=== PATIENT | male | born 1960 | race Caucasian/White ===

== ENCOUNTER → 2017-07-18 | Outpatient (CLI) | payer OTHER ==
[~2017-07-18] MED LIST: AZITHROMYCIN500 MG; CALCIUM ACETAT667 MG PO; LASIX40 MG PO; LOPRESSOR25 MG PO; NIFEDIPINE ER90 MG; SENSIPAR30 MG PO
[2017-07-18 13:29] LABS: INR 0.96; PROTHROMBIN TIME 13.3 seconds (11.9-14.5)
[2017-07-18 13:30] LABS: PARTIAL THROMBOPLASTIN TIME 33.1 seconds (23.8-35.5)
--- NOTE | 2017-07-18 14:46 | Diagnostic Imaging Report ---
PROCEDURE:ABDOMINAL ULTRASOUND COMPARISON:None. INDICATIONS:Ascites FINDINGS: Liver: 16.8 cm. Normal hepatic parenchymal echogenicity. No focal mass. Main portal vein: 1.3 cm. Hepatopedal flow. Gallbladder: Multiple echogenic gallstones are present. The gallbladder is distended, measuring 9.5 cm in greatest length. No gallbladder wall thickening or pericholecystic fluid. Common Bile Duct: 5.0 mm. No echogenic filling defect. Sonographic Keating's sign: Negative. Right kidney: Not visualized. Left kidney: Not visualized. Spleen: 11.2 cm. No focal mass. The pancreas, inferior vena cava, and aorta were insufficiently visualized for comment secondary to overlying bowel gas and increased body habitus. Ascites: None. CONCLUSION: Cholelithiasis. No sonographic evidence of acute cholecystitis. Probable gallbladder hydrops. Dictated by: Lui Peterson M.D. on 07/18/2017 at 14:55 Electronically approved by: Lui Peterson M.D. on 07/18/2017 at 14:55
== END ==
LOC: US 12:19
PROVIDERS: ATTEND Internal Medicine
DX: K70.31 Alcoholic cirrhosis of liver with ascites (principal)
CPT/HCPCS: 36415; 76700; 85049; 85610; 85730

== ENCOUNTER → 2017-08-13 | Outpatient (CLI) | payer OTHER ==
[~2017-08-13] MED LIST changes: +IOPAMIDOL 370 MG/ML 200 ML INFUS..BTL INJ ONE; +SODIUM CHLORIDE 0.9% 50ML 50 ML ONE
--- NOTE | 2017-08-13 10:41 | Diagnostic Imaging Report ---
CT scan abdomen and pelvis. 08/13/2017 Clinical history: Abdominal pain Technique: Routine protocol CT abdomen and pelvis performed after 100 mL Isovue-370 intravenous contrast. No enteric contrast was administered. Coronal, sagittal and axial images generated from source data. Dose: 583.39 mGy-cm Comparison: None Findings: Calcified right lower lobe granuloma. Left hemidiaphragm elevation. Mild cardiomegaly without pericardial effusion. Liver: Nodular margin with left lobe hypertrophy. Gallbladder: Multiple calcified stones measuring up to 2 cm in diameter. No bile duct dilation. Pancreas: Normal Spleen: Span 12 cm. Normal. Adrenal glands: Normal Kidneys: Totally atrophic left kidney with moderate hydroureter (for example, image 49, series 2). This extends to the level of the urinary bladder. Right pelvic kidney. Urinary bladder: Normal Prostate and seminal vesicles: Normal Bowel: Small sliding-type hiatal hernia. Mild descending colon diverticulosis. Normal small bowel caliber. Peritoneum: Normal Vasculature: Normal caliber. Expected anomalous origins of the right pelvic kidney vessels. Mild scattered atherosclerosis, nonflow limiting. Questionable early umbilical vein recanalization (image 24, series 2). No conspicuous varices. Lymph nodes: Retroperitoneal nodes measuring up to 0.9 cm in diameter (image 38, series 2). Otherwise, normal Skeleton: Relative loss of normal lumbar lordosis. Otherwise, normal Soft tissues: 2.5 x 3 x 3 cm fat-containing umbilical hernia. Hernia ostium about 1.3 cm. Containing fat demonstrates mild regional inflammation with trace focal fluid collection. No bowel involvement. Impression: 1. Fat-containing umbilical hernia. Hernia fat demonstrates mild inflammatory changes. Recommend correlation for strangulation/reducibility. No bowel involvement. 2. Right pelvic kidney and atrophic left kidney. Though the left kidney is atrophic, there is hydroureter in the mid to distal segment, which may be secondary to chronic reflux. 3. Cholelithiasis. 4. Cirrhotic liver morphology. 5. Subcentimeter retroperitoneal nodes, likely reactive. 6. Small hiatal hernia. This report was generated with voice-recognition technology. Errors in field attendant can occur. Please interpret accordingly and contact a radiologist if there are any questions regarding the report. Signed by: Dr. John Kendall M.D. on 08/13/2017 10:37 AM
== END ==
LOC: CT 09:04
PROVIDERS: ATTEND Internal Medicine
DX: R10.9 Unspecified abdominal pain (principal)
CPT/HCPCS: 74177; Q9967

== ENCOUNTER → 2018-11-11 | Outpatient (CLI) | payer OTHER ==
[~2018-11-11] MED LIST changes: -IOPAMIDOL 370 MG/ML 200 ML INFUS..BTL INJ ONE; -SODIUM CHLORIDE 0.9% 50ML 50 ML ONE
--- NOTE | 2018-11-11 18:31 | Diagnostic Imaging Report ---
EXAMINATION: CHEST 2 VIEWS INDICATION: Not provided COMPARISON: 07/30/2014 FINDINGS: PA and lateral views TUBES and LINES: None. LUNGS: Lungs are well inflated. There is no evidence of pneumonia or pulmonary edema. Unchanged right lower lung field nodular density, likely a calcified granuloma. PLEURA: No pleural effusion or pneumothorax. HEART AND MEDIASTINUM: The cardiomediastinal silhouette is unremarkable. BONES AND SOFT TISSUES: No acute osseous lesion. Soft tissues are unremarkable. UPPER ABDOMEN: No free air under the diaphragm. IMPRESSION: No acute thoracic abnormality. The change from prior exam. Signed by: Dr. Nash Ellis MD on 11/11/2018 6:28 PM
== END ==
LOC: RAD 16:37
PROVIDERS: ATTEND Internal Medicine Nephrology
DX: R06.00 Dyspnea, unspecified (principal)
CPT/HCPCS: 71046

== ENCOUNTER 2020-04-25 10:21 | Inpatient (IN) | payer OTHER ==
[~2020-04-25] VITALS: Ht 165.1 cm; Wt 85.3 kg
[2020-04-25] VITALS (10 sets, daily range): BP systolic 90–142; BP diastolic 58–84
[2020-04-25 10:49] LABS: BASOPHILS # (AUTO) 0.1 (0.0-0.1); BASOPHILS % 1.2 % (0.0-1.0); EOSINOPHILS # (AUTO) 0.5 (0.0-0.4); EOSINOPHILS % 5.2 % (0.0-6.0); HEMATOCRIT 40.4 % (38.2-49.6); HEMOGLOBIN 13.1 g/dL (14.0-18.0); LYMPHOCYTES # (AUTO) 2.5 (1.0-3.2); LYMPHOCYTES % 27.6 % (18.0-39.1); MEAN CORPUSCULAR HEMOGLOBIN 30.8 pg (28-32); MEAN CORPUSCULAR HGB CONC 32.4 g/dL (31-35); MEAN CORPUSCULAR VOLUME 95.1 fL (81-99); MONOCYTES % 11.1 % (4.4-11.3); NEUTROPHILS # (AUTO) 4.9 (2.1-6.9); NEUTROPHILS % 54.6 % (38.7-80.0); PLATELET COUNT 158 x10e3/uL (140-360); RED BLOOD COUNT 4.25 x10e6/uL (4.3-5.7); RED CELL DISTRIBUTION WIDTH 12.9 % (11.7-14.4)
[2020-04-25 11:06] LABS: ALBUMIN 3.6 g/dL (3.5-5.0); ALBUMIN/GLOBULIN RATIO 0.7 (0.8-2.0); ANION GAP 19.4 mmol/L (8-16); CREATININE, SERUM 9.36 mg/dL (0.72-1.25); POTASSIUM 4.4 mmol/L (3.5-5.1)
[2020-04-25] MEDS ORDERED: ETOMIDATE 2 MG/ML 10 ML INJ IV STA (11:36)
[2020-04-25] MEDS ORDERED: SUCCINYLCHOLINE 200 MG/10 ML SYR IV ONE (11:37)
[2020-04-25] MEDS ORDERED: SODIUM CHLORIDE 0.9% 1000ML 1,000 ML IV STA (11:46)
[2020-04-25] MEDS ORDERED: SODIUM CHLORIDE 0.9% 1000ML 1,000 ML IV ONE (11:46)
[2020-04-25] MEDS ORDERED: CEFEPIME HCL 1 GM VIAL IV SCH (12:00)
[2020-04-25] MEDS ORDERED: MIDAZOLAM HCL 2 MG/2 ML VIAL ONE ×2 (12:08→12:22)
[2020-04-25] MEDS ORDERED: MIDAZOLAM HCL 2 MG/2 ML VIAL IV ONE (12:13)
[2020-04-25] MEDS ORDERED: MIDAZOLAM HCL 50 MG in SODIUM CHLORIDE 0.9% 100 ML 90 ML IV PRN (12:15)
[2020-04-25] MEDS ORDERED: FENTANYL CITRATE INJ 2,000 MCG in SODIUM CHLORIDE 0.9% 250ML 210 ML IV PRN (12:15)
[2020-04-25] MEDS: CEFEPIME 1GM/NS 0.9% 50 ML 50 ML IV SCH ×2 (12:18→12:30)
[2020-04-25] MEDS ORDERED: MIDAZOLAM HCL 5MG/ML 10ML VIAL 100 ML IV PRN (12:30)
[2020-04-25 12:41] LABS: CLARITY,URINE CLEAR (CLEAR); COLOR,URINE YELLOW (YELLOW)
[2020-04-25 12:42] LABS: KETONES,URINE NEGATIVE (NEGATIVE); LEUKOCYTE ESTERASE ,URINE TRACE (NEGATIVE); NITRITE,URINE NEGATIVE (NEGATIVE); PROTEIN,URINE DIPSTICK 2+ (NEGATIVE); URINE UROBILINOGEN 0.2 mg/dL (0.2 - 1)
[2020-04-25 12:43] LABS: BACTERIA,URINE RARE /HPF; BILIRUBIN,URINE NEGATIVE (NEGATIVE); EPITHELIAL CELLS,URINE FEW /LPF; RBC,URINE 0-5 /HPF (0-5)
[2020-04-25] MEDS ORDERED: VECURONIUM BROMIDE FOR INJ 20 MG VIAL IV ONE (12:53)
[2020-04-25] MEDS ORDERED: VECURONIUM BROMIDE FOR INJ 20 MG VIAL ONE (12:57)
[2020-04-25] MEDS ORDERED: ETOMIDATE 2 MG/ML 10 ML INJ IV ONE (13:08)
[2020-04-25] MEDS ORDERED: SUCCINYLCHOLINE CHLORIDE 20 MG/ML 10ML VIAL ONE (13:08)
[2020-04-25 15:25] LABS: CREATINE KINASE MB 5.2 ng/mL (0-5.0)
[2020-04-25] MEDS ORDERED: VANCOMYCIN 1GM/NS 250 ML 250 ML IV ONE (16:30)
[2020-04-25] MEDS: RIFAXIMIN 550 MG TABLET PO SCH (16:48)
[2020-04-25] MEDS: LACTULOSE SYRUP 20 GM/30 ML UDC NG SCH (16:48)
[2020-04-25 16:56] LABS: ABG HCO3 31 mmol/L (22-26); ABG PCO2 64 mmHg (35-45); ABG PH 7.29 (7.35-7.45); ABG PO2 133 mmHg (80-105); ABG TCO2 33
[2020-04-25] MEDS: PROPOFOL IV EMULSION 10MG/ML 100 ML IV PRN (23:20)
[2020-04-25 23:29] LABS: CREATINE KINASE MB 4.8 ng/mL (0-5.0)
[2020-04-26] VITALS (25 sets, daily range): BP systolic 50–147; BP diastolic 29–92
[2020-04-26] MEDS ORDERED: DEXMEDETOMIDINE HCL 200 MCG in SODIUM CHLORIDE 0.9% 50ML 48 ML IV PRN ×2
[2020-04-26] MEDS ORDERED: ALBUMIN 25% 25GM 100ML 0.25 GM/ML BTL IV ONE
[2020-04-26] MEDS ORDERED: NOREPINEPHRINE 8 MG/D5W 250 ML 250 ML ONE (00:14)
[2020-04-26 00:42] LABS: ABG HCO3 25 mmol/L (22-26); ABG PCO2 35 mmHg (35-45); ABG PH 7.47 (7.35-7.45); ABG PO2 79 mmHg (80-105); ABG TCO2 26
[2020-04-26] MEDS ORDERED: MIDAZOLAM HCL 2 MG/2 ML VIAL IV STA (00:52)
[2020-04-26] MEDS ORDERED: ALBUMIN 25% 12.5GM 50ML 100 ML IV ONE (00:57)
[2020-04-26] MEDS ORDERED: SODIUM CHLORIDE 0.9% 1000ML 1,000 ML ONE (00:57)
[2020-04-26] MEDS ORDERED: MIDAZOLAM HCL 2 MG/2 ML VIAL ONE (01:25)
[2020-04-26] MEDS: NOREPINEPHRINE INJ 4MG/4ML 8 MG in DEXTROSE 5% 250ML 250 ML IV SCH (02:14)
[2020-04-26] MEDS: ALBUMIN 25% 25GM 100ML 100 ML IV SCH ×2 (02:14→02:19)
[2020-04-26 06:49] LABS: BASOPHILS # (AUTO) 0.1 (0.0-0.1); BASOPHILS % 0.7 % (0.0-1.0); EOSINOPHILS # (AUTO) 0.4 (0.0-0.4); EOSINOPHILS % 3.6 % (0.0-6.0); HEMATOCRIT 33.5 % (38.2-49.6); HEMOGLOBIN 11.3 g/dL (14.0-18.0); LYMPHOCYTES # (AUTO) 2.5 (1.0-3.2); LYMPHOCYTES % 23.6 % (18.0-39.1); MEAN CORPUSCULAR HEMOGLOBIN 31.4 pg (28-32); MEAN CORPUSCULAR HGB CONC 33.7 g/dL (31-35); MEAN CORPUSCULAR VOLUME 93.1 fL (81-99); MONOCYTES # (AUTO) 1.1 (0.2-0.8); NEUTROPHILS # (AUTO) 6.6 (2.1-6.9); NEUTROPHILS % 61.8 % (38.7-80.0); PLATELET COUNT 173 x10e3/uL (140-360)
[2020-04-26 07:12] LABS: INR 1.02; PROTHROMBIN TIME 13.9 seconds (11.9-14.5)
[2020-04-26 07:25] LABS: ALBUMIN 3.3 g/dL (3.5-5.0); ALBUMIN/GLOBULIN RATIO 0.8 (0.8-2.0); ANION GAP 21.8 mmol/L (8-16); CALCIUM 9.1 mg/dL (8.4-10.2); CREATININE, SERUM 10.45 mg/dL (0.72-1.25); POTASSIUM 4.8 mmol/L (3.5-5.1)
[2020-04-26 07:42] LABS: CREATINE KINASE MB 2.4 ng/mL (0-5.0)
[2020-04-26] MEDS: RIFAXIMIN 550 MG TABLET PO SCH ×2 (09:08→16:09)
[2020-04-26] MEDS: LACTULOSE SYRUP 20 GM/30 ML UDC NG SCH ×2 (09:09→16:08)
[2020-04-26] MEDS ORDERED: SODIUM CHLORIDE 0.9% 1000ML 2,000 ML ONE (09:35)
[2020-04-26] MEDS: PROPOFOL IV EMULSION 10MG/ML 100 ML IV PRN (14:11)
[2020-04-26] MEDS: CEFEPIME 1GM/NS 0.9% 50 ML 50 ML IV SCH (14:55)
[2020-04-26] MEDS: VANCOMYCIN 1GM/NS 250 ML 250 ML IV SCH (16:08)
[2020-04-26] MEDS: FAMOTIDINE 20 MG TAB PO SCH (16:08)
[2020-04-26 17:35] LABS: ABG HCO3 27 mmol/L (22-26); ABG PCO2 41 mmHg (35-45); ABG PH 7.43 (7.35-7.45); ABG PO2 93 mmHg (80-105); ABG TCO2 29
[2020-04-26] MEDS: HEPARIN SOD (PORCINE) 5,000 UNIT/ML VIAL SC SCH (22:35)
[2020-04-27] VITALS (14 sets, daily range): BP systolic 96–130; BP diastolic 50–75
[2020-04-27] MEDS: NOREPINEPHRINE INJ 4MG/4ML 8 MG in DEXTROSE 5% 250ML 250 ML IV SCH ×2
[2020-04-27 04:34] LABS: BASOPHILS # (AUTO) 0.1 (0.0-0.1); BASOPHILS % 0.9 % (0.0-1.0); EOSINOPHILS # (AUTO) 0.3 (0.0-0.4); EOSINOPHILS % 3.9 % (0.0-6.0); HEMATOCRIT 35.1 % (38.2-49.6); HEMOGLOBIN 11.4 g/dL (14.0-18.0); LYMPHOCYTES # (AUTO) 1.7 (1.0-3.2); MEAN CORPUSCULAR HEMOGLOBIN 30.9 pg (28-32); MEAN CORPUSCULAR HGB CONC 32.5 g/dL (31-35); MEAN CORPUSCULAR VOLUME 95.1 fL (81-99); MONOCYTES # (AUTO) 1.1 (0.2-0.8); MONOCYTES % 14.1 % (4.4-11.3); NEUTROPHILS # (AUTO) 4.8 (2.1-6.9); NEUTROPHILS % 59.7 % (38.7-80.0); PLATELET COUNT 111 x10e3/uL (140-360); RED BLOOD COUNT 3.69 x10e6/uL (4.3-5.7)
[2020-04-27 04:53] LABS: ALBUMIN 3.3 g/dL (3.5-5.0); ALBUMIN/GLOBULIN RATIO 0.8 (0.8-2.0); ANION GAP 18.4 mmol/L (8-16); CALCIUM 9.6 mg/dL (8.4-10.2); CREATININE, SERUM 7.22 mg/dL (0.72-1.25); POTASSIUM 4.4 mmol/L (3.5-5.1)
[2020-04-27] MEDS: HEPARIN SOD (PORCINE) 5,000 UNIT/ML VIAL SC SCH ×2 (08:15→21:00)
[2020-04-27] MEDS: RIFAXIMIN 550 MG TABLET PO SCH ×2 (08:15→16:47)
[2020-04-27] MEDS: LACTULOSE SYRUP 20 GM/30 ML UDC NG SCH ×2 (08:15→16:47)
[2020-04-27] MEDS: FAMOTIDINE 20 MG TAB PO SCH ×2 (08:15→16:47)
[2020-04-27] MEDS ORDERED: ALBUTEROL/IPRATROPIUM 3 ML NEB NEB PRN (09:15)
[2020-04-27] MEDS: ALBUTEROL/IPRATROPIUM 3 ML NEB NEB SCH ×2 (11:00→19:40)
[2020-04-27] MEDS: CEFEPIME 1GM/NS 0.9% 50 ML 50 ML IV SCH (11:32)
[2020-04-27] MEDS: FUROSEMIDE 40 MG TAB PO SCH (16:47)
[2020-04-27] MEDS: CALCIUM ACETATE 667 MG GELCAP PO SCH ×2 (16:47→22:46)
[2020-04-27] MEDS: METOPROLOL TARTRATE 25 MG TAB PO SCH (16:47)
[2020-04-27] MEDS: TEMAZEPAM 7.5 MG CAP PO PRN (21:45)
[2020-04-28] VITALS (15 sets, daily range): BP systolic 96–170; BP diastolic 55–98
[2020-04-28] MEDS: ALBUTEROL/IPRATROPIUM 3 ML NEB NEB SCH ×4 (02:40→20:50)
[2020-04-28 05:00] LABS: BASOPHILS # (AUTO) 0.1 (0.0-0.1); BASOPHILS % 1.1 % (0.0-1.0); EOSINOPHILS # (AUTO) 0.4 (0.0-0.4); EOSINOPHILS % 5.8 % (0.0-6.0); HEMATOCRIT 34.3 % (38.2-49.6); HEMOGLOBIN 11.2 g/dL (14.0-18.0); LYMPHOCYTES # (AUTO) 1.8 (1.0-3.2); LYMPHOCYTES % 28.8 % (18.0-39.1); MEAN CORPUSCULAR HEMOGLOBIN 31.4 pg (28-32); MEAN CORPUSCULAR HGB CONC 32.7 g/dL (31-35); MEAN CORPUSCULAR VOLUME 96.1 fL (81-99); MONOCYTES # (AUTO) 0.9 (0.2-0.8); MONOCYTES % 14.7 % (4.4-11.3); NEUTROPHILS # (AUTO) 3.1 (2.1-6.9); NEUTROPHILS % 49.3 % (38.7-80.0); PLATELET COUNT 108 x10e3/uL (140-360); RED BLOOD COUNT 3.57 x10e6/uL (4.3-5.7); RED CELL DISTRIBUTION WIDTH 12.7 % (11.7-14.4)
[2020-04-28 05:16] LABS: ALBUMIN 3.2 g/dL (3.5-5.0); ALBUMIN/GLOBULIN RATIO 0.7 (0.8-2.0); ANION GAP 19.7 mmol/L (8-16); CALCIUM 9.3 mg/dL (8.4-10.2); CREATININE, SERUM 9.47 mg/dL (0.72-1.25); POTASSIUM 4.7 mmol/L (3.5-5.1)
[2020-04-28] MEDS: FAMOTIDINE 20 MG TAB PO SCH ×2 (07:40→15:37)
[2020-04-28] MEDS ORDERED: SODIUM CHLORIDE 0.9% 1000ML 2,000 ML ONE (07:43)
[2020-04-28] MEDS: CALCIUM ACETATE 667 MG GELCAP PO SCH ×3 (08:38→21:02)
[2020-04-28] MEDS: LACTULOSE SYRUP 20 GM/30 ML UDC NG SCH ×2 (08:38→15:53)
[2020-04-28] MEDS: CINACALCET 30 MG TAB PO SCH (08:38)
[2020-04-28] MEDS: FUROSEMIDE 40 MG TAB PO SCH ×2 (08:38→15:37)
[2020-04-28] MEDS: RIFAXIMIN 550 MG TABLET PO SCH ×2 (08:38→15:38)
[2020-04-28] MEDS: METOPROLOL TARTRATE 25 MG TAB PO SCH ×2 (08:38→15:53)
[2020-04-28] MEDS: HEPARIN SOD (PORCINE) 5,000 UNIT/ML VIAL SC SCH ×2 (08:39→21:36)
[2020-04-28] MEDS ORDERED: ALBUMIN 25% 12.5GM 50ML 50 ML IV ONE (10:38)
[2020-04-28] MEDS: CEFEPIME 1GM/NS 0.9% 50 ML 50 ML IV SCH (13:51)
[2020-04-28] MEDS: VANCOMYCIN 1GM/NS 250 ML 250 ML IV SCH (15:48)
[2020-04-28] MEDS ORDERED: SODIUM CHLORIDE 0.9% 250ML 250 ML ONE (16:38)
[2020-04-28] MEDS ORDERED: BENZONATATE 100 MG CAP PO PRN (20:30)
[2020-04-28] MEDS: TEMAZEPAM 7.5 MG CAP PO PRN (21:02)
[2020-04-29] VITALS: BP 107/70
[2020-04-29] MEDS: ALBUTEROL/IPRATROPIUM 3 ML NEB NEB SCH ×2 (01:05→07:22)
[2020-04-29 04:00] VITALS: BP 113/76
[2020-04-29] MEDS: FAMOTIDINE 20 MG TAB PO SCH (07:30)
[2020-04-29 08:24] VITALS: BP 163/86
[2020-04-29 08:30] VITALS: BP 163/86
[2020-04-29] MEDS: FUROSEMIDE 40 MG TAB PO SCH (09:00)
[2020-04-29] MEDS: HEPARIN SOD (PORCINE) 5,000 UNIT/ML VIAL SC SCH (09:00)
[2020-04-29] MEDS: CINACALCET 30 MG TAB PO SCH (09:00)
[2020-04-29] MEDS: METOPROLOL TARTRATE 25 MG TAB PO SCH (09:00)
[2020-04-29] MEDS: RIFAXIMIN 550 MG TABLET PO SCH (09:00)
[2020-04-29] MEDS: CALCIUM ACETATE 667 MG GELCAP PO SCH (09:00)
[2020-04-29] MEDS: LACTULOSE SYRUP 20 GM/30 ML UDC NG SCH (09:00)
[2020-04-29] MEDS ORDERED: DOXYCYCLINE HY100 MG PO (10:22)
[2020-04-29] MEDS ORDERED: SENNA LAX8.6 MG PO (10:23)
[2020-04-29] MEDS ORDERED: TESSALON PERLE100 MG PO (10:24)
[2020-04-29] MEDS ORDERED: PROVENTIL HFA6.7 GM INH (10:24)
[2020-04-29 11:45] VITALS: BP 130/82
== END 2020-04-29 11:48 | disposition home or self-care (01) | DRG 871 ==
LOC: ER 10:42 → ERHOLD 11:53 → ICU 15:41 → MED/SURG2 04-28 16:21
PROVIDERS: ADMIT Internal Medicine; ATTEND Internal Medicine
PROC: 5A09459 Assistance with Respiratory Ventilation, 24-96 Consecutive Hours, Continuous Negative Airway Pressure (ICD-10-PCS; principal; 2020-04-25)
PROC: 0BH17EZ Insertion of Endotracheal Airway into Trachea, Via Natural or Artificial Opening (ICD-10-PCS; 2020-04-25)
PROC: 02HV33Z Insertion of Infusion Device into Superior Vena Cava, Percutaneous Approach (ICD-10-PCS; 2020-04-26)
PROC: 03HB33Z Insertion of Infusion Device into Right Radial Artery, Percutaneous Approach (ICD-10-PCS; 2020-04-26)
PROC: 5A1D70Z Performance of Urinary Filtration, Intermittent, Less than 6 Hours Per Day (ICD-10-PCS; 2020-04-26)
DX: A41.9 Sepsis, unspecified organism (principal); J96.22 Acute and chronic respiratory failure with hypercapnia; G93.41 Metabolic encephalopathy; N18.6 End stage renal disease; K65.2 Spontaneous bacterial peritonitis; J69.0 Pneumonitis due to inhalation of food and vomit; K76.6 Portal hypertension; J44.1 Chronic obstructive pulmonary disease with (acute) exacerbation; I12.0 Hypertensive chronic kidney disease with stage 5 chronic kidney disease or end stage renal disease; K74.60 Unspecified cirrhosis of liver; Z99.2 Dependence on renal dialysis; Z91.81 History of falling; D69.6 Thrombocytopenia, unspecified; K59.00 Constipation, unspecified; Z11.59 Encounter for screening for other viral diseases
CPT/HCPCS: 31500; 36415; 36600; 51700; 51701; 70450; 71045; 71250; 74176; 76700; 80053; 81001; 82140; 82550; 82553; 82805; 83605; 84484; 85025; 85610; 86704; 86706; 87040; 87340; 90962; 93005; 94002; 94003; 94640; 99251; 99285; J0330; J0692; J1644; J2250; J3370; J7030; J7050; P9047; U0002

== ENCOUNTER 2020-05-04 11:54 | Inpatient (IN) | payer OTHER ==
[2020-05-04] VITALS (12 sets, daily range): BP systolic 106–147; BP diastolic 65–77
[~2020-05-04] VITALS: Ht 165.1 cm; Wt 84.4 kg
[~2020-05-04 11:54] MED LIST changes: +DOXYCYCLINE HY100 MG PO; +PROVENTIL HFA6.7 GM INH; +SENNA LAX8.6 MG PO; +TESSALON PERLE100 MG PO
[2020-05-04 12:49] LABS: BASOPHILS # (AUTO) 0.1 (0.0-0.1); BASOPHILS % 1.1 % (0.0-1.0); EOSINOPHILS # (AUTO) 0.5 (0.0-0.4); EOSINOPHILS % 5.6 % (0.0-6.0); HEMATOCRIT 34.6 % (38.2-49.6); HEMOGLOBIN 11.3 g/dL (14.0-18.0); LYMPHOCYTES # (AUTO) 2.4 (1.0-3.2); LYMPHOCYTES % 30.3 % (18.0-39.1); MEAN CORPUSCULAR HEMOGLOBIN 31.4 pg (28-32); MEAN CORPUSCULAR HGB CONC 32.7 g/dL (31-35); MEAN CORPUSCULAR VOLUME 96.1 fL (81-99); MONOCYTES # (AUTO) 0.9 (0.2-0.8); MONOCYTES % 11.5 % (4.4-11.3); NEUTROPHILS # (AUTO) 4.1 (2.1-6.9); NEUTROPHILS % 51.3 % (38.7-80.0); PLATELET COUNT 155 x10e3/uL (140-360); RED CELL DISTRIBUTION WIDTH 12.7 % (11.7-14.4)
[2020-05-04 13:02] LABS: INR 1.11; PROTHROMBIN TIME 14.9 seconds (11.9-14.5)
[2020-05-04 13:03] LABS: PARTIAL THROMBOPLASTIN TIME 39.6 seconds (23.8-35.5)
[2020-05-04 13:08] LABS: ALBUMIN 3.7 g/dL (3.5-5.0); ALBUMIN/GLOBULIN RATIO 0.8 (0.8-2.0); ANION GAP 24.3 mmol/L (8-16); CALCIUM 9.5 mg/dL (8.4-10.2); CREATININE, SERUM 13.55 mg/dL (0.72-1.25)
[2020-05-04 13:10] LABS: POTASSIUM 5.3 mmol/L (3.5-5.1)
[2020-05-04 13:14] LABS: B-TYPE NATRIURETIC PEPTIDE2 122.6 pg/mL (0-100)
[2020-05-04 13:22] LABS: CREATINE KINASE MB 4.4 ng/mL (0-4.3)
--- NOTE | 2020-05-04 13:28 | Diagnostic Imaging Report ---
EXAMINATION: PELVIS AP 1-2 VIEWS INDICATION: Fall COMPARISON: CT abdomen/pelvis of 04/26/2020 FINDINGS: No acute fracture or dislocation. Mild left hip degenerative changes. IMPRESSION: No acute osseous injury. Signed by: Di Pablo MD on 05/04/2020 1:25 PM
--- NOTE | 2020-05-04 13:32 | Diagnostic Imaging Report ---
EXAMINATION: CHEST SINGLE (PORTABLE) INDICATION: Fall COMPARISON: Chest radiograph of 07/30/2014 FINDINGS: LINES/TUBES:EKG leads overlie the chest. LUNGS:The lungs are well-inflated. Mild central pulmonary vascular congestion. PLEURA:No pleural effusion or pneumothorax. MEDIASTINUM:The cardiomediastinal silhouette appears normal in size and shape. BONES/SOFT TISSUES:No acute osseous injury. ABDOMEN:No free air under the diaphragm. IMPRESSION: Central pulmonary vascular congestion. No focal pneumonia. Signed by: Di Pablo MD on 05/04/2020 1:28 PM
--- NOTE | 2020-05-04 13:57 | NUR ---
Called [facility] for stat dialysis and they are on their way. Patient will go to room 194 in ICU
[2020-05-04 13:59] LABS: CLARITY,URINE TURBID (CLEAR); COLOR,URINE BROWN (YELLOW)
[2020-05-04 14:01] LABS: BILIRUBIN,URINE SMALL (NEGATIVE); KETONES,URINE NEGATIVE (NEGATIVE); LEUKOCYTE ESTERASE ,URINE TRACE (NEGATIVE); NITRITE,URINE NEGATIVE (NEGATIVE); PROTEIN,URINE DIPSTICK >=300 (NEGATIVE); URINE UROBILINOGEN 0.2 mg/dL (0.2 - 1)
[2020-05-04 14:03] LABS: AMORPHOUS SEDIMENT,URINE FEW (FEW); BACTERIA,URINE FEW /HPF; EPITHELIAL CELLS,URINE RARE /LPF; RBC,URINE >50 /HPF (0-5)
--- NOTE | 2020-05-04 14:04 | Diagnostic Imaging Report ---
Examination: CT BRAIN WO CONTRAST History:Altered mental status. Falls. Comparison studies:Head CT dated 04/25/2020 Technique: Axial images were obtained from the skull base to the vertex. Coronal and sagittal images reconstructed from the axial data. Dose modulation, iterative reconstruction, and/or weight based adjustment of the mA/kV was utilized to reduce the radiation dose to as low as reasonably achievable. Intravenous contrast: None Findings: Motion artifact. Scalp: No abnormalities. Bones: No fractures, blastic or lytic lesions. Brain sulci: Appropriate for age. Ventricles: Normal in size and configuration. No hydrocephalus. Extra-axial space: No large hemorrhage.. Parenchyma: No large masses, large hemorrhage, or large acute or chronic cortical based vascular insults. Again demonstrated are mild patchy areas of hypoattenuation in the periventricular and subcortical white matter, nonspecific. Sellar/suprasellar region: No abnormalities. Craniocervical junction: Patent foramen magnum. No Chiari one malformation. Incidental findings: Atherosclerotic calcification of the cavernous and supraclinoid internal carotid arteries. Impression: No new or acute intracranial abnormalities when compared to prior head CT dated 04/25/2020. Unchanged chronic microvascular ischemic change. Signed by: Dr. Audrey Leone M.D. on 05/04/2020 2:01 PM
--- NOTE | 2020-05-04 14:09 | Emergency Department Note ---
History of Present Illnes History of Present Illness Chief Complaint: General Medicine Complaints History of Present Illness This is a 59 year old male Patient in from home with reports of altered mental status, weakness, fatigue, and frequent falls over the last few days. Patient lives in a senior community and the change in behavior has been noticed by other residents as well. Patient is lethargic in triage. Abdomen noted to be very distended. Dialysis fistula to left forearm. VSS. NORMAL HD IS MWF BUT HE MISSED MON (YESTERDAY), DRINKING A BOTTLE OF DR PEPPER ON ARRIVAL Historian: Patient Arrival Mode: Car Fire Extinguisher Installer Required: No Onset (how long ago): day(s) Location: MENTAL STATUS Quality: ALTERED Radiation: Reports non-radiation Severity: moderate Onset quality: gradual Duration (how long): day(s) Timing of current episode: constant Progression: worsening Chronicity: recurrent Context: Reports recent illness (SIMILAR EPISODE 9 DAYS AGO AND WAS INTUBATED) Relieving factors: none Exacerbating factors: none Associated symptoms: Reports denies other symptoms Treatments prior to arrival: none Past Medical/Family History Physician Review I have reviewed the patient's past medical and family history. Any updates have been documented here. Past Medical History Recent Fever: No Clinical Suspicion of Infectio: Yes New/Unexplained Change in Ment: Yes Past Medical History: COPD, Liver Disease, ESRD, Chronic Kidney Disease Other Medical History: NEEDS LIVER TRANSPLANT BUT NOT A GOOD CANDITATE (PER SISTER) BORN WITH 1 KIDNEY DIALYSIS M/W/F Pneumothorax 04/2020 Other Surgery: born with 1 kidney lue fistula Social History Smoking Cessation: Current some day smoker Counseling Performed: No Alcohol Use: Occasional Any Illegal Drug Use: No TB Exposure/Symptoms: No Physically hurt or threatened: No Family History Family history of heart diseas: No Other Last Tetanus: utd Any Pre-Existing Lines (PICC,: Yes (LEFT ARM FISTULA FOR HD) Review of Systems Review of Systems Constitutional: Reports no symptoms EENTM: Reports no symptoms Cardiovascular: Reports no symptoms Respiratory: Reports no symptoms Gastrointestinal: Reports no symptoms Genitourinary: Reports no symptoms Musculoskeletal: Reports as per HPI, Reports other (MULTIPLE FALLS) Integumentary: Reports no symptoms Neurological: Reports as per HPI Psychological: Reports no symptoms Endocrine: Reports no symptoms Hematological/Lymphatic: Reports no symptoms Physical Exam Related Data Allergies: Coded Allergies: No Known Allergies (Unverified , 04/25/20) Triage Vital Signs Vital Signs Date Time Temp Pulse Resp B/P (MAP) Pulse Ox O2 Delivery O2 Flow Rate FiO2 05/04/20 12:20 71 19 98 Room Air Vital signs reviewed: Yes Physical Exam CONSTITUTIONAL Constitutional: Present ill appearing, Present other (SOMNOLENT) HENT HENT: Present normocephalic, Present atraumatic, Present oropharynx clear/moist, Present nose normal HENT L/R: Present left ext ear normal, Present right ext ear normal EYES Eyes: Reports PERRL, Reports conjunctivae normal NECK Neck: Present ROM normal, Present supple PULMONARY Pulmonary: Present effort normal, Present breath sounds normal, Present other (DECR BILAT, +RALES) CARDIOVASCULAR Cardiovascular: Present regular rhythm, Present heart sounds normal, Present capillary refill normal, Present normal rate, Present murmur (1/6 SYS), Present gallop (S3) GASTROINTESTINAL Abdominal: Present soft, Present nontender, Present bowel sounds normal, Present distension (? ASCITES); Absent tender, Absent guarding, Absent rebound GENITOURINARY Genitourinary: Present exam deferred SKIN Skin: Present warm, Present dry, Present other (MULTIPLE SMALL ABRASIONS M ULTIPLE SITES) MUSCULOSKELETAL Musculoskeletal: Present ROM normal NEUROLOGICAL Neurological: Present oriented x 3, Present no gross motor or sensory deficits, Present other (SOMNOLENT BUT AROUSABLE, ANSWERS Q'S AND FOLLOWS COMMANDS, +ASTERIXIS) PSYCHOLOGICAL Psychological: Present mood/affect normal, Present judgement normal Results Laboratory Result Diagram: 05/04/20 1235 05/04/20 1235 Laboratory Laboratory Tests Test 05/04/20 13:35 05/04/20 12:35 White Blood Count 8.02 x10e3/uL (4.8-10.8) Red Blood Count 3.60 x10e6/uL (4.3-5.7) Hemoglobin 11.3 g/dL (14.0-18.0) Hematocrit 34.6 % (38.2-49.6) Mean Corpuscular Volume 96.1 fL (81-99) Mean Corpuscular Hemoglobin 31.4 pg (28-32) Mean Corpuscular Hemoglobin Concent 32.7 g/dL (31-35) Red Cell Distribution Width 12.7 % (11.7-14.4) Platelet Count 155 x10e3/uL (140-360) Neutrophils (%) (Auto) 51.3 % (38.7-80.0) Lymphocytes (%) (Auto) 30.3 % (18.0-39.1) Monocytes (%) (Auto) 11.5 % (4.4-11.3) Eosinophils (%) (Auto) 5.6 % (0.0-6.0) Basophils (%) (Auto) 1.1 % (0.0-1.0) Neutrophils # (Auto) 4.1 (2.1-6.9) Lymphocytes # (Auto) 2.4 (1.0-3.2) Monocytes # (Auto) 0.9 (0.2-0.8) Eosinophils # (Auto) 0.5 (0.0-0.4) Basophils # (Auto) 0.1 (0.0-0.1) Absolute Immature Granulocyte (auto 0.02 x10e3/uL (0-0.1) Prothrombin Time 14.9 seconds (11.9-14.5) Prothromb Time International Ratio 1.11 Activated Partial Thromboplast Time 39.6 seconds (23.8-35.5) Sodium Level 141 mmol/L (136-145) Potassium Level 5.3 mmol/L (3.5-5.1) Chloride Level 98 mmol/L (98-107) Carbon Dioxide Level 24 mmol/L (22-29) Anion Gap 24.3 mmol/L (8-16) Blood Urea Nitrogen 65 mg/dL (7-26) Creatinine 13.55 mg/dL (0.72-1.25) Estimat Glomerular Filtration Rate 4 ML/MIN (60-) BUN/Creatinine Ratio 5 (6-25) Glucose Level 77 mg/dL (74-118) Calcium Level 9.5 mg/dL (8.4-10.2) Total Bilirubin 0.5 mg/dL (0.2-1.2) Aspartate Amino Transf (AST/SGOT) 48 IU/L (5-34) Alanine Aminotransferase (ALT/SGPT) 35 IU/L (0-55) Alkaline Phosphatase 159 IU/L (40-150) Ammonia 51 UG/DL (31-123) Creatine Kinase 163 IU/L (30-200) Creatine Kinase MB 4.40 ng/mL (0-4.3) Troponin I 0.032 ng/mL (0-0.300) B-Type Natriuretic Peptide 122.6 pg/mL (0-100) Total Protein 8.6 g/dL (6.5-8.1) Albumin 3.7 g/dL (3.5-5.0) Globulin 4.9 g/dL (2.3-3.5) Albumin/Globulin Ratio 0.8 (0.8-2.0) Lab results reviewed: Yes Imaging Imaging results reviewed: Yes Impressions EXAMINATION: CHEST SINGLE (PORTABLE) INDICATION: Fall COMPARISON: Chest radiograph of 07/30/2014 FINDINGS: LINES/TUBES:EKG leads overlie the chest. LUNGS:The lungs are well-inflated. Mild central pulmonary vascular congestion. PLEURA:No pleural effusion or pneumothorax. MEDIASTINUM:The cardiomediastinal silhouette appears normal in size and shape. BONES/SOFT TISSUES:No acute osseous injury. ABDOMEN:No free air under the diaphragm. IMPRESSION: Central pulmonary vascular congestion. No focal pneumonia. Signed by: Di Pablo MD on 05/04/2020 1:28 PM EXAMINATION: PELVIS AP 1-2 VIEWS INDICATION: Fall COMPARISON: CT abdomen/pelvis of 04/26/2020 FINDINGS: No acute fracture or dislocation. Mild left hip degenerative changes. IMPRESSION: No acute osseous injury. Signed by: Di Pablo MD on 05/04/2020 1:25 PM Procedures 12 Lead ECG Interpretation ECG Interpretation : ECG: ECG 1 Fire Extinguisher Installer: Interpreted by ED physician Date: May 04, 2020 Time: 12:27 Rhythm: sinus rhythm Rate: normal BPM: 70 Conduction: LAFB ST segments normal: Yes T wave inversion: aVR, V1 T waves flattening: aVL Clinical Impression: abnormal ECG Critical Care Time Total Critical Care Time (min): 35 Critcal care necessary due to: ELECTRICAL AND INSTRUMENT ENGINEER failure or compromise, renal failure Critcal care time spent by me: discussion w consultants, discussion w primary provider, examination of patient, order/perform tx or interventions, order/review laboratory studies, order/review radiographic studies, pulse oximetry, re-evaluation of patient condition, review of old charts Assessment & Plan Medical Decision Making [facility] [place], AROUSABLE, +ASTERIXIS - CHECK CBC, CHEM, AMMONIA, CARDIACS, ECG, BNP, PANCX'S, CXR, CT HEAD/C-SPINE, PELVIS XRAY, ABG - R/O UREMIA, HEPATIC ENCEPH, CEREBRAL BLEED, FRACTURE, ELECTROLYTE ABNL, HYPERKALEMIA Reassessment Reassessment ADMI TTO DR RIZVI ([place] PLUS) - CONSULT TO DR CAPONE - HE WILL DIALYZE ACUTELY IN ICU Assessment & Plan Final Impression: (1) Volume overload (2) ESRD (end stage renal disease) on dialysis (3) Falls (4) Uremia (5) Altered mental status Last Vital Signs Date Time Temp Pulse Resp B/P (MAP) Pulse Ox O2 Delivery O2 Flow Rate FiO2 05/04/20 12:20 71 19 98 Room Air Home Meds Reported Medications Albuterol Sulfate (PROVENTIL HFA) 6.7 Gm Hfa.aer.ad, 1 INH INH Q4HR PRN for SHORTNESS OF BREATH, INH 04/29/20 Benzonatate (TESSALON PERLE) 100 Mg Capsule, MG PO Q6H, #60 04/29/20 Sennosides (SENNA LAX) 8.6 Mg Tablet, 8.6 MG PO BID, #80 TAB 04/29/20 Doxycycline Hyclate (DOXYCYCLINE HYCLATE) 100 Mg Capsule, 100 MG PO BID, #14 CAP 04/29/20 Nifedipine (NIFEDIPINE ER) 90 Mg Tablet.er 07/30/14 Calcium Acetate (CALCIUM ACETATE) 667 Mg Tablet, 667 MG PO TID, CAP 07/30/14 Metoprolol Tartrate (LOPRESSOR) 25 Mg Tab, 25 MG PO BID, #60 TAB 07/30/14 Azithromycin (AZITHROMYCIN) 500 Mg Tablet 07/30/14 Cinacalcet Hcl (SENSIPAR) 30 Mg Tablet, 30 MG PO DAILY, #30 TAB 07/30/14 Furosemide (LASIX) 40 Mg Tablet, 40 MG PO BID, #30 TAB 07/30/14 Furosemide (LASIX) 40 Mg Tablet, 40 MG PO DAILY, #30 TAB 07/30/14 GILLIAN JONES MD May 04, 2020 14:09
--- NOTE | 2020-05-04 14:15 | Diagnostic Imaging Report ---
Examination: CT CERVICAL SPINE WO CONTRAST HISTORY:Altered mental status. Falls. COMPARISON:None. TECHNIQUE: Multidetector helical axial images were obtained without contrast from the foramen magnum to T1. Coronal and sagittal reformatted images were done. Bone and soft tissue windows were evaluated. Dose modulation, iterative reconstruction, and/or weight based adjustment of the mA/kV was utilized to reduce the radiation dose to as low as reasonably achievable. FINDINGS: There is significant motion artifact on the scan. Alignment:Normal alignment and lordosis. Vertebrae: No large acute fracture, infection or neoplasm. Disc space heights: Normal height. Caliber of spinal canal: Developmentally normal. Posterior fossa and craniocervical junction: Foramen magnum patent. No Chiari 1 malformation. Soft tissues: Atherosclerotic calcification of the bilateral carotid bifurcations. Degenerative changes: No large disc bulge/ herniation or foraminal or canal stenosis. Visualized lung apices: No abnormalities. IMPRESSION: Despite limitation, no large acute fracture. Signed by: Dr. Audrey Leone M.D. on 05/04/2020 2:11 PM
[2020-05-04 14:23] LABS: AMPHETAMINES SCREEN,URINE NEGATIVE (NEGATIVE); BENZODIAZEPINES SCREEN,URINE POSITIVE (NEGATIVE); PHENCYCLIDINE SCREEN,URINE NEGATIVE (NEGATIVE)
[2020-05-04] MEDS ORDERED: SODIUM CHLORIDE 0.9% 1000ML 2,000 ML ONE (15:14)
[2020-05-04] MEDS ORDERED: FLUMAZENIL 0.5MG/ 5ML VIAL IV ONE (15:15)
[2020-05-04 15:21] LABS: ABG PCO2 56 mmHg (35-45); ABG PO2 85 mmHg (80-105)
[2020-05-04 15:23] LABS: ABG TCO2 30
[2020-05-04] MEDS ORDERED: VANCOMYCIN 1GM/NS 250 ML 250 ML IV ONE (15:30)
[2020-05-04] MEDS ORDERED: CEFTRIAXONE SOD 1 GM/NS 50 ML 50 ML IV ONE (15:30)
--- NOTE | 2020-05-04 15:39 | NUR ---
Pt arrived to the unit at 1500. Pt was transferred to bed and did not wake up. pt did not arouse to sternal rub. MD Orlando Owens to bedside and ordered Romazicon due to UDS. Dose administered and patient woke up. Patient oriented and conversing. MD Orlando Owens aware of new mental status. Patient stated that he takes Clonazepam to help him sleep and was unsure if he took dose today.
[2020-05-04] MEDS ORDERED: ALBUTEROL SULFATE HFA 8GM INHALATION AEROSOL INH PRN (17:30)
[2020-05-04] MEDS: CALCIUM ACETATE 667 MG GELCAP PO SCH (17:58)
--- NOTE | 2020-05-04 18:07 | Consultation ---
DATE OF CONSULTATION: Pulmonary Critical Care Consultation. CHIEF COMPLAINT: Unresponsiveness. HISTORY OF PRESENT ILLNESS: The patient is a 59-year-old man. He has a history of end-stage renal disease and goes dialysis three times a week. He also has a history of some liver disease. He was recently hospitalized with obtundation and hypercapnic respiratory failure. He required a brief intubation, but was extubated within a day or two. He was discharged home on April 29. He now returns with a decreased level of consciousness and obtundation. There has been no fever. He has no chest pain or difficulty breathing. Apparently, he had some improvement with flumazenil. He was also started on dialysis. PAST SURGICAL HISTORY: Status post dialysis graft placement. PAST MEDICAL HISTORY: 1. End-stage renal disease. 2. COPD. 3. Liver disease. SOCIAL HISTORY: The patient is not an active smoker. He is not a drinker. FAMILY HISTORY: Noncontributory. ALLERGIES: THERE ARE NO KNOWN DRUG ALLERGIES. REVIEW OF SYSTEMS: The patient has no history of fever. There is no neck pain. He is not having any chest pain. He does not have any dyspnea or cough. He has no abdominal pain. He has no nausea or vomiting. There is some leg edema. PHYSICAL EXAMINATION: VITAL SIGNS: The patient is afebrile. The blood pressure is 107/75 and the respiratory rate is 15. The pulse is 64 and the saturations 100% on 2 L. HEENT: Shows no facial swelling or erythema. LYMPHATIC: Shows no submandibular, cervical, or supraclavicular adenopathy. CARDIAC: Reveals regular rate and rhythm with normal S1, S2. LUNGS: Auscultation of lungs reveals decreased breath sounds at the bases. There is no wheezing. ABDOMEN: Soft and nontender. There is no rebound or guarding. EXTREMITIES: Shows no leg edema or calf tenderness. There is no cyanosis or clubbing. SKIN: Shows no rashes. NEUROLOGICAL: Shows the patient to be obtunded, but arousable. There are no focal abnormalities. LABORATORY DATA: White blood cell count is 8 and hemoglobin is 11.3 and the platelet count is 155. The BUN to creatinine ratio is 65 to 13.55 and the potassium is 5.3. Other electrolytes are within normal limits. The albumin is 3.7. RADIOGRAPHIC DATA: Chest x-ray shows central pulmonary vascular congestion. CT scan of the cervical spine shows no acute abnormality. Brain CT shows no acute changes. IMPRESSION: 1. Metabolic encephalopathy. 2. End-stage renal disease. 3. Hyperkalemia. 4. Anemia, unspecified. PLAN: 1. Continue dialysis. 2. Continue to monitor mental status. 3. Avoid benzodiazepines or other medications, which could effect mental status. 4. Continue antibiotics until culture results are available. 5. Check ammonia level. James Mae MD [facility] /[id number]
[2020-05-04] MEDS ORDERED: SODIUM CHLORIDE 0.9% 250ML 250 ML ONE (18:35)
--- NOTE | 2020-05-04 19:58 | Consultation ---
DATE OF CONSULTATION: 05/04/2020 The patient seen in the ICU. Spoke with Dr. Salcedo. HISTORY OF PRESENT ILLNESS: A 59-year-old gentleman recently discharged from the hospital, came in with CO2 narcosis, respiratory failure, was intubated, subsequently received dialysis. He has underlying history of end-stage renal disease. History of hypertension. Apparently came in, was brought in by EMS with altered mental status. He is completely unresponsive. His pupils are symmetric and respond to light. He appears to shiver at some point in time, but not consistent. He is not responding to any verbal or mechanical stimuli. Unable to get any history or review of system. Most of the history from as per ER notes and Dr. Salcedo. The patient has a prior history of tobacco addiction and cigarette smoking, end-stage renal disease, anemia, chronic kidney disease, secondary hyperparathyroidism, was discharged in perfectly awake, alert, oriented state. He was sent on Proventil as needed, senna, Tessalon Perles, doxycycline for 7 days. At this time around, we do not have a list of his home medications exactly as to what he takes, but his workup here shows a white count of 8, hemoglobin 11.3. Sodium is 141, potassium 5.3, BUN 65, creatinine 13.55. LFTs noted. AST elevated at slightly 48, alkaline phosphate is 159. BNP of 122. CK 4.4. He had urinalysis, specific gravity 1.025 dipstick, positive protein, more than 50 rbc, 6-10 wbc. Urine tox screen positive for benzodiazepines. Ethyl alcohol level less than 10. ALLERGIES: NO APPARENT DRUG ALLERGIES. CURRENT MEDICATIONS: The patient was given normal saline. Right now not on any medication. Currently on oxygen. PHYSICAL EXAMINATION: VITAL SIGNS: Monitor showing sinus rhythm. There are no ST-T changes. Blood pressure is 148/91, pulse rate 68, respiratory rate 16, oxygen saturation 100% on nasal cannula, though. HEAD AND NECK: Pupils reactive. Unable to examine oral mucosa. Neck veins does not appear to be distended. LUNGS: Very poor gas exchange. Relatively clear as far as my exam is concerned, but very poor gas exchange due to poor voluntary effort. HEART: S1, S2 audible. ABDOMEN: Otherwise soft, not distended. Flanks full, nontender. EXTREMITIES: Lower extremity examination shows no edema. IMPRESSION AND PLAN: Altered mental status in a dialysis patient. Urine drug screen positive for benzodiazepine. Apparently has missed dialysis. No evidence of fluid overload though. CT brain, please see official report, shows no acute intracranial abnormalities compared to prior CT. Had a C-spine done as well shows "no large acute fracture." Had abdomen and pelvic x-ray shows no acute osseous injury. Underlying hyperkalemia, does not appear fluid overloaded. Temperature is within normal range. I have asked the nurse to monitor temperature again. We will order blood cultures x2. Since there is altered mental status, urine drug screen positive for benzodiazepines, I am going to give him Romazicon and see if that reverses his mental status. In the meantime, we will order empiric antibiotic in the form of vancomycin x1 and Rocephin x1. Please see orders. MD DARIANA Baig/DENIA /[id number]
[2020-05-04] MEDS: AZITHROMYCIN 500MG/NS 250 ML 250 ML IV SCH (20:19)
[2020-05-04] MEDS: CEFTRIAXONE SOD 1 GM/NS 50 ML 50 ML IV SCH (20:20)
[2020-05-05] VITALS (18 sets, daily range): BP systolic 113–137; BP diastolic 69–86
[2020-05-05 05:06] LABS: BASOPHILS # (AUTO) 0.1 (0.0-0.1); BASOPHILS % 1.4 % (0.0-1.0); EOSINOPHILS # (AUTO) 0.3 (0.0-0.4); EOSINOPHILS % 5.4 % (0.0-6.0); HEMATOCRIT 33.4 % (38.2-49.6); HEMOGLOBIN 10.6 g/dL (14.0-18.0); LYMPHOCYTES # (AUTO) 1.8 (1.0-3.2); LYMPHOCYTES % 28.4 % (18.0-39.1); MEAN CORPUSCULAR HEMOGLOBIN 30.6 pg (28-32); MEAN CORPUSCULAR HGB CONC 31.7 g/dL (31-35); MEAN CORPUSCULAR VOLUME 96.5 fL (81-99); MONOCYTES # (AUTO) 0.9 (0.2-0.8); MONOCYTES % 13.7 % (4.4-11.3); NEUTROPHILS # (AUTO) 3.2 (2.1-6.9); NEUTROPHILS % 50.8 % (38.7-80.0); PLATELET COUNT 131 x10e3/uL (140-360); RED BLOOD COUNT 3.46 x10e6/uL (4.3-5.7); RED CELL DISTRIBUTION WIDTH 12.8 % (11.7-14.4)
[2020-05-05 05:27] LABS: ALBUMIN 3.2 g/dL (3.5-5.0); ALBUMIN/GLOBULIN RATIO 0.7 (0.8-2.0); ANION GAP 19.7 mmol/L (8-16); CALCIUM 9.1 mg/dL (8.4-10.2); CREATININE, SERUM 10.13 mg/dL (0.72-1.25); POTASSIUM 4.7 mmol/L (3.5-5.1)
[2020-05-05 05:54] LABS: CREATINE KINASE MB 3.4 ng/mL (0-5.0)
[2020-05-05] MEDS ORDERED: DEXTROSE 50% SYRINGE 50 ML IV ONE (06:16)
[2020-05-05] MEDS: CALCIUM ACETATE 667 MG GELCAP PO SCH ×4 (07:14→18:38)
[2020-05-05 08:35] LABS: CREATINE KINASE MB 4.3 ng/mL (0-5.0)
[2020-05-05] MEDS: SENNOSIDES 8.6 MG TAB PO SCH ×2 (09:18→18:38)
[2020-05-05] MEDS: CINACALCET 30 MG TAB PO SCH (09:19)
[2020-05-05] MEDS ORDERED: SODIUM CHLORIDE 0.9% 1000ML 2,000 ML ONE (10:14)
--- NOTE | 2020-05-05 11:17 | Progress Note ---
DATE: SUBJECTIVE: This patient is afebrile. He is more awake. He is not complaining of anything. PHYSICAL EXAMINATION: VITAL SIGNS: Stable. HEENT: Shows no facial swelling or erythema. LYMPHATIC: Shows no submandibular, cervical or supraclavicular adenopathy. CARDIAC: Reveals regular rate and rhythm with a normal S1 and S2. LUNGS: Auscultation of lungs shows decreased breath sounds at the bases. There is no wheezing. ABDOMEN: Soft and nontender. There is no rebound or guarding. EXTREMITIES: Shows no leg edema or calf tenderness. There is no cyanosis or clubbing. SKIN: Shows no rashes. NEUROLOGICAL: Shows no focal abnormalities. LABORATORY DATA: White blood cell count is 6.26, hemoglobin 10.6. The platelet count is 131. The electrolytes are within normal limits. The albumin is 3.2. IMPRESSION: 1. Metabolic encephalopathy. 2. End-stage renal disease. 3. Anemia, unspecified. PLAN: 1. Complete dialysis. 2. Transfer out of intensive care unit. 3. Taper off benzodiazepines and other sedative medications. James Mae MD [facility] /[id number]
--- NOTE | 2020-05-05 18:13 | NUR ---
Received patient transfer from ICU. Respiration even and unlabored. Patient ambulates with walker with non-skid socks. Call light in reach. Denies pain. Alert and oriented to name, and place.
[2020-05-05] MEDS: AZITHROMYCIN 500MG/NS 250 ML 250 ML IV SCH (18:36)
[2020-05-05] MEDS: CEFTRIAXONE SOD 1 GM/NS 50 ML 50 ML IV SCH (18:36)
[2020-05-05] MEDS ORDERED: SODIUM CHLORIDE 0.9% 250ML 250 ML ONE (18:41)
--- NOTE | 2020-05-05 19:15 | NUR ---
Bedside report received. Pt sitting up to side of bed. Pt denies pain. No distress noted. Instructed pt to call for assistance-Call light within reach.
--- NOTE | 2020-05-05 20:55 | NUR ---
Pt has two right upper arm 18g IVs-Pt c/o pain to pain in one of the IV sites. Lower IV site closest to chest appears red, swollen and infiltrated. Pt refused to have IV antibiotics continued on his other IV site. Pt stated that if both IV's were not removed he would "yank them out himself". Both right upper arm IV's DC'd, catheters intact, pressure applied to both sites until bleeding stopped, both sites covered with gauze and tape.
--- NOTE | 2020-05-05 21:33 | NUR ---
Pt has orders for telemetry and pulse ox monitoring. Pt is refusing telemetry/pulse ox monitoring.
--- NOTE | 2020-05-05 21:43 | NUR ---
Dr. Hall notified of pts refusal to wear telemetry and pulse ox. Per Dr. Hall do not DC orders, but document pts refusal.
[2020-05-06 00:51] VITALS: BP 136/89
[2020-05-06 05:29] VITALS: BP 104/80
--- NOTE | 2020-05-06 07:05 | NUR ---
BEDSIDE SHIFT REPORT RECEIVED FROM THE FISH TENDER RN. PT HAS NO IV ACCESS. PER THE SHIFT REPORT, PT REFUSED IV ACCESS AND TELE. EDUCATED PT ABOUT FALL PRECAUTIONS. PT VERBALIZED UNDERSTANDING. CALL LIGHT WITH IN EASY REACH. INSTRUCTED PT TO USE CALL LIGHT FOR ALL THE NEEDS. BED IS LOW AND LOCKED. SIDE RAILS X2. PT DENIES NEEDS AT THIS TIME.
--- NOTE | 2020-05-06 08:00 | NUR ---
PT REFUSED TELE AND IV AGAIN.
[2020-05-06 08:04] VITALS: BP 137/96
[2020-05-06] MEDS: CALCIUM ACETATE 667 MG GELCAP PO SCH (08:32)
[2020-05-06] MEDS: SENNOSIDES 8.6 MG TAB PO SCH (08:33)
[2020-05-06] MEDS: CINACALCET 30 MG TAB PO SCH (08:33)
--- NOTE | 2020-05-06 10:55 | NUR ---
PT WANTS TO GO HOME. PAGED DR. RIZVI AND REPORTED THE SAME. OKAY TO D/C PT PER DR. RIZVI AND DR. CAPONE.
--- NOTE | 2020-05-06 22:27 | Discharge Summary ---
PRIMARY CARE PHYSICIAN: Dr. Misbah Rendon. CONSULTANTS: 1. Dr. Cathy Owens. 2. Dr. James Mae. FINAL DIAGNOSES: 1. Status post respiratory failure, required intubation secondary to fluid overload and overdose of the clonazepam. 2. End-stage renal disease, on dialysis with fluid overload, missing dialysis. 3. Anxiety disorder, depression. HISTORY OF PRESENT ILLNESS: The patient today adamantly want to go home prior to discussion with the patient's clonazepam abuse. Apparently, the patient was found unarousable and was taking benzodiazepine consistent in the urine drug screen. The patient is also missing dialysis with fluid overload. When he came to the emergency room, he ended up on the ventilator support. The patient is subsequently extubated after hemodialysis and wearing off the benzodiazepine, which is clonazepam that the patient was taking. The patient did receive dialysis. Once he is better, he is adamantly want to go home. Per Dr. Cathy Owens, the patient was clear. He did receive dialysis. I discussed with the patient regarding benzodiazepine, clonazepam previously, given the fact that the patient having problem taking the medication and became unresponsive and ended up in the emergency room and get intubated and also at time, missing dialysis and fluid overload. The patient expressed understanding previously. The patient was discharged home today by RN because the patient adamantly want to leave the hospital. He will resume his home medication. I expressed that the patient should not take any more clonazepam and follow up with Dr. Misbah Rendon for adjustment of his medication and initiate on medication for his anxiety without sedation. MD VALARIE Rowe/NETOL /[id number]
--- OUTSIDE RECORDS SUMMARY | 2020-05-13 17:12 | XMS REPORT | Continuity of Care Document ---
Author Author [facility] Organization [facility] Address [address] [place] [address] Phone Unavailable Care Team Providers Care Tactical Air Control Party Manager Name Role Phone Julieta Mata MD, Marcel PCP Justine JONES Attphys Unavailable DAYANNA RIZVI Attphys Unavailable MARY JONES Attphys Unavailable MARCEL DAVENPORT Attphys Unavailable Justine CAPONE MD Admphys Unavailable DAYANNA RIZVI Admphys Unavailable Payers Payer Name Policy Type Policy Number Effective Date Expiration Date S ource Problems Condition Name Condition Details Condition Category Status Onset Date Resolution Date Last Treatment Date Treating Clinician Comments Source Complications due to renal dialysis device, implant, a nd graft Complications due to renal dialysis device, implant, and graft Disease Active 201 01-10-10 00:00:00 Star garcia Hepatitis C Hepatitis C Disease Active 2016-10-16 00:00:00 Stra Mckeon Essential hypertension Essential hypertension Disease Active 2016-10-16 00:00:[address] ESRD (end stage renal disease) 03/2012, TTS ESRD (end s tage renal disease) 03/2012, TTS Disease Active 2016-10-16 00:00:00 Last Assessment & Plan: 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 Plan extensive revision of L AVF with TDC placement We discussed operative complications including bleeding, thrombosis, failure of the access, swelling, steal syndrome, and need for additional procedures. Star Mckeon Tobacco use Tobacco use Disease Active 2016-10-16 00:00:00 Star Mckeon Allergies, Adverse Reactions, Alerts Allergy Name Allergy Type Status Severity Reaction(s) Onset Date Inacti ve Date Treating Clinician Comments Source No Known Allergies DA Active U 2018-04-15 00:00:00 [facility] No Known Allergies DA Active U 2015-10-06 00:00:00 [facility] Family History Family Member Diagnosis Comments Start Date Stop Date Source Natural father Hypertension Star Mckeon Social History Social Habit Start Date Stop Date Quantity Comments Source History of tobacco use Cigarette Smoker Star Mckeon Sex Assigned At Korina Mckeon Alcohol intake 2017-01-15 00:00:00 2017-01-15 00:00:00 Current non-drinker of alcohol (finding) Star Mckeon Tobacco Comment 2016-11-15 00:00:00 2016-11-15 00:00:00 4-5 cig/day Star Mckeon Smoking Status Start Date Stop Date Source Current every day smoker 2017-01-15 00:00:00 Korina Mckeon Medications Ordered Medication Name Filled Medication Name Start Date Stop Da te Current Medication? Ordering Clinician Indication Dosage Frequency Signature (SIG) Comments Components Source NIFEdipine XL (PROCARDIA XL) 60 MG 24 hr tablet 2017-01-15 12:15 :25 Yes 60mg QD Take 60 mg by mouth daily. H gertrude Mckeon RENVELA 800 mg tablet 2016-10-09 00:00:00 Yes Star Mckeon SENSIPAR 30 mg tablet 2016-09-27 00:00:00 Yes Star Mckeon gabapentin (NEURONTIN) 100 mg capsule 2016-08-26 00:00:00 Y es TK 2 CS PO HS Star Mckeon ANORO ELLIPTA 62.5-25 mcg/actuation blister with device 2016-08-25 00:00:00 Yes INL 1 PUFF PO D Star Mckeon Procedures This patient has no known procedures. Plan of Care Planned Activity Planned Date Details Comments Source Future Scheduled Test 2020-02-07 00:00:00 INFLUENZA VACCINE [code = INFLUENZA VACCINE] Star Mckeon Future Scheduled Test 2010 00:00:00 COLONOSCOPY SCREEN ING [code = COLONOSCOPY SCREENING] Star Mckeon Future Scheduled Test 2010 00:00:00 SHINGLES VACCINES (#1) [code = SHINGLES VACCINES (#1)] Moapa Bahai Results Test Description Test Time Test Comments Results Result Comments Source CT CERVICAL SPINE WO 2020-05-04 14:05:00 [facility]OUGH[facility] : 1960 Sex: M [facility] [address] [address] Patient Name: FADIA DOUGHERTY MR #: [id number] : 1960 Age/Sex: 59/M Req #: [id number] Adm Physician: Ordered by: GILLIAN JONES MD Report #: [id number] Location: ER Room/Bed: Procedure: [id number] CT/CT CERVICAL SPINE WO Exam Date: 05/04/20 Exam Time: 1250 REPORT STATUS: Signed Examination: CT CERVICAL SPINE WO CONTRAST HISTORY:Altered mental status. Falls. COMPARISON:None. TECHNIQUE: Multidetector helical axial images were obtained without contrast from the foramen magnum to T1. Coronal and sagittal reformatted images were done. Bone and soft tissue windows were evaluated. Dose modulation, iterative reconstruction, and/or weight based adjustment of the mA/kV was utilized to reduce the radiation dose to as low as reasonably achievable. FINDINGS: There is significant motion artifact on the scan. Alignment:Normal alignment and lordosis. Vertebrae: No large acute fracture, infection or neoplasm. Disc space heights: Normal height. Caliber of spinal canal: Developmentally normal. Posterior fossa and craniocervical junction: Foramen magnum patent. No Chiari 1 malformation. Soft tissues: Atherosclerotic calcification of the bilateral carotid bifurcations. Degenerative changes: No large disc bulge/ herniation or foraminal or canal stenosis. Visualized lung apices: No abnormalities. IMPRESSION: Despite limitation, no large acute fracture. Signed by: Dr. Cesar Leone M.D. on 05/04/2020 2:11 PM Dictated By: CESAR GÓMEZ MD 10 Transcribed By: MALDONADO on 05/04/201410 COPY TO: GILLIAN JONES MD CT BRAIN WO 2020-05-04 13:57:00 [facility]: FADIA DOUGHERTY : 1960 Sex: M [address] [address] Patient Name: FADIA DOUGHERTY MR #: [id number] : 1960 Age/Sex: 59/M Req #: [id number] [facility] Physician: Ordered by: GILLIAN JONES MD Report #: [id number] Location: Room/Bed: Procedure: [id number] CT/CT BRAIN WO Exam Date: 05/04/20 Exam Time: 1250 REPORT STATUS: Signed Examination: CT BRAIN WO CONTRAST History:Altered mental status. Falls. Comparison studies:Head CT dated 04/25/2020 Technique: Axial images were obtained from the skull base to the vertex. Coronal and sagittal images reconstructed from the axial data. Dose modulation, iterative reconstruction, and/or weight based adjustment of the mA/kV was utilized to reduce the radiation dose to as low as reasonably achievable. Intravenous contrast: None Findings: Motion artifact. Scalp: No abnormalities. Bones: No fractures, blastic or lytic lesions. Brain sulci: Appropriate for age. Ventricles: Normal in size and configuration. No hydrocephalus. Extra-axial space: No large hemorrhage.. Parenchyma: No large masses, large hemorrhage, or large acute or chronic cortical based vascular insults. Again demonstrated are mild patchy areas of hypoattenuation in the periventricular and subcortical white matter, nonspecific. Sellar/suprasellar region: No abnormalities. Craniocervical junction: Patent foramen magnum. No Chiari one malformation. Incidental findings: Atherosclerotic calcification of the cavernous and supraclinoid internal carotid arteries. Impression: No new or acute intracranial abnormalities when compared to prior head CT dated 04/25/2020. Unchanged chronic microvascular ischemic change. Signed by: Dr. Cesar Leone M.D. on 05/04/2020 2:01 PM Dictated By: CESAR GÓMEZ MD 00 Transcribed By: MALDONADO on 05/04/201400 COPY TO: GILLIAN JONES MD CHEST SINGLE (PORTABLE) 2020-05-04 13:26:00 [facility] 1960 Sex: M [facility] [address] [address] Patient Name: FADIA DOUGHERTY MR #: [id number] : 1960 Age/Sex: 59/M Req #: [id number] Adm Physician: Ordered by: GILLIAN JONES MD Report #: [id number] Location: ER Room/Bed: Procedure: [id number] DX/CHEST SINGLE (PORTABLE) Exam Date: 05/04/20 Exam Time: 1255 REPORT STATUS: Signed EXAMINATION: CHEST SINGLE (PORTABLE) INDICATION: Fall COMPARISON: Chest radiograph of 07/30/2014 FINDINGS: LINES/TUBES:EKG leads overlie the chest. LUNGS:The lungs are well-inflated. Mild central pulmonary vascular congestion. PLEURA:No pleural effusion or pneumothorax. MEDIASTINUM:The cardiomediastinal silhouette appears normal in size and shape. BONES/SOFT TISSUES:No acute osseous injury. ABDOMEN:No free air under the diaphragm. IMPRESSION: Central pulmonary vascular congestion. No focal pneumonia. Signed by: Alicia Chatman MD on 05/04/2020 1:28 PM Dictated By: ALICIA CHATMAN MD 27 Transcribed By: MALDONADO on 05/04/201327 COPY TO: GILLIAN JONES MD PELVIS AP 1-2 VIEWS 2020-05-04 13:22:00 [facility]: FADIA DOUGHERTY : 1960 Sex: M [place] [address] Patient Name: FADIA DOUGHERTY MR #: [id number] : 1960 Age/Sex: 59/M Req #: [id number] Adm Physician: Ordered by: GILLIAN JONES MD Report #: [id number] Location: ER Room/Bed: Procedure: [id number] DX/PELVIS AP 1-2 VIEWS Exam Date: 05/04/20 Exam Time: 1255 REPORT STATUS: Signed EXAMINATION: PELVIS AP 1-2 VIEWS INDICATION: Fall COMPARISON: CT abdomen/pelvis of 04/26/2020 FINDINGS: No acute fracture or dislocation. Mild left hip degenerative changes. IMPRESSION: No acute osseous injury. Signed by: Alicia Chatman MD on 05/04/2020 1:25 PM Dictated By: ALICIA CHATMAN MD Transcribed By: MALDONADO on 05/04/204 COPY TO: GILLIAN JONES MD CHEST SINGLE (PORTABLE) 2020-04-27 08:13:00 [facility]: FADIA DOUGHERTY : 1960 Sex: M [place] [address] Patient Name: FADIA DOUGHERTY MR #: [id number] : 1960 Age/Sex: 59/M Req #: [id number] [facility] Physician: DAYANNA RIZVI MD Ordered by: FLOWER PALMER MD Report #: [id number] Location: ICU Room/Bed: ICU [facility] Procedure: [id number] DX/CHEST SINGLE (PORTABLE) Exam Date: 04/27/20 Exam Time: 519 REPORT STATUS: Signed EXAMINATION: CHEST SINGLE (PORTABLE) INDICATION: resp failure 20200427 COMPARISON: 04/26/2020 chest x-ray; chest CT 04/26/2020 FINDINGS: AP view TUBES and LINES: Status post extubation and enteric tube removal.. Right internal jugular central line in place with tip projecting over mid to inferior SVC. LUNGS: Lungs are well inflated. Pulmonary vascular congestion and mild additional edema. PLEURA: No pneumothorax. Small left pleural effusion. HEART AND MEDIASTINUM: The cardiomediastinal silhouette is enlarged on this AP view. BONES AND SOFT TISSUES: No acute osseous lesion. Soft tissues are unremarkable. UPPER ABDOMEN: No free air under the diaphragm. IMPRESSION: Mild cardiomegaly and pulmonary vascular congestion. . Signed by: Clemente Irene DO on 04/27/2020 8:15 AM Dictated By: CLEMENTE IRENE DO 4 Transcribed By: MALDONADO on 04/27/20814 COPY TO: FLOWER PALMER MD CT ABDOMEN/PELVIS WO 2020-04-27 06:18:00 [facility] 1960 Sex: [place] [address] Patient Name: FADIA DOUGHERTY MR #: [id number] : 1960 Age/Sex: 59/M Req #: [id number] Adm Physician: DAYANNA RIZIV MD Ordered by: DAYANNA RIZVI MD Report #: [id number] Location: ICU Room/Bed: ICU 190 Procedure: [id number] CT/CT ABDOMEN/PELVIS WO Exam Date: 04/26/20 Exam Time: 2038 REPORT STATUS: Signed EXAM: CT Chest, Abdomen and Pelvis WITHOUT contrast INDICATION: AMS/RESP FAILURE COMPARISON: Abdominal CT 08/13/2017. TECHNIQUE: Chest, abdomen and pelvis were scanned utilizing a multidetector helical scanner from the lung apex to the pubic symp hysis without administration of IV contrast. Absence of intravenous contrast decreases sensitivity for detection of focal lesions and vascular pathology. Coronal and sagittal reformations were obtained. Routine protocol was performed. IV CONTRAST: None ORAL CONTRAST: None COMPLICATIONS: None RADIATION DOSE: Total DLP: ... 1026 mGy*cm Estimated effective dose: (DLP x 0.015 x size factor) mSv CTDIvol has been reviewed. It is below the limits set by the Radiation Protocol Committee (RPC). Dose modulation, iterative reconstruction, and/or weight based adjustment of the mA/kV was utilized to reduce the radiation dose to as low as reasonably achievable. FINDINGS: LINES and TUBES: Right IJ central venous catheter, tip in the superior cavoatrial junction. LUNGS AND AIRWAYS: Bibasilar scarring/atelectasis otherwise. Calcified right middle lobe benign granuloma. Airways are normal. PLEURA: The pleural spaces are clear. HEART AND MEDIASTINUM: The thyroid gland is normal. No suspicious mediastinal, hilar or axillary lymphadenopathy. The heart is normal in size. There is no pericardial effusion. Calcifications of the aorta and major branches including the coronary arteries. Calcified hilar nodes. Aortic valve calcifications. Left ventricular subendocardial fat deposition, present since at least 08/13/2017. HEPATOBILIARY: Nodular liver contour and enlarged left hepatic lobe. Widened intrahepatic fissures. No focal hepatic lesions. No biliary ductal dilation. GALLBLADDER: Multiple calcified gallstones. No wall thickening. SPLEEN: No splenomegaly. PANCREAS: No focal masses or ductal dilatation. ADRENALS: No adrenal nodules KIDNEYS/URETERS: Atrophic [place] kidneys. Transplant right pelvic has a few small benign-appearing exophytic cyst. GI TRACT: No abnormal distention, wall thickening, or evidence of bowel obstruction. Moderate colonic stool volume. Appendix is normal. PELVIC ORGANS/BLADDER: Unremarkable. LYMPH NODES: No lymphadenopathy. VESSELS: Arterial calcifications. Unremarkable. PERITONEUM / RETROPERITONEUM: No free air or fluid. BONES: Degenerative changes. Endplate vertebral sclerotic changes. SOFT TISSUES: Prosthetic right testicle. There is a fat containing para-umbilical hernia. IMPRESSION: 1. Triple vessel coronary artery calcific atherosclerosis with evidence of chronic sequelae of left ventricular ischemia, present since at least 08/13/2017. 2. Renal osteodystrophy. 3. Cirrhotic hepatic morphology. 4. Moderate colonic stool volume. 5. Cholelithiasis. Signed by: Clemente Irene DO on 04/27/2020 6:29 AM Dictated By: CLEMENTE IRENE DO 8 Transcribed By: MALDONADO on 04/27/20628 COPY TO: DAYANNA RIZVI MD CT CHEST WO 2020-04-27 06:18:00 [facility]: FADIA DOUGHERTY : 1960 Sex: M [address] [address] Patient Name: FADIA DOUGHERTY MR #: [id number] : 1960 Age/Sex: 59/M Req #: [id number] Adm Physician: DAYANNA RIZVI MD Ordered by: DAYANNA RIZVI MD Report #: [id number] Location: ICU Room/Bed: ICU [facility] Procedure: [id number] CT/CT CHEST WO Exam Date: 04/26/20 Exam Time: 2038 REPORT STATUS: Signed EXAM: CT Chest, Abdomen and Pelvis WITHOUT contrast INDICATION: AMS/RESP FAILURE COMPARISON: Abdominal CT 08/13/2017. TECHNIQUE: Chest, abdomen and pelvis were scanned utilizing a multidetector helical scanner from the lung apex to the pubic symphysis witho ut administration of IV contrast. Absence of intravenous contrast decreases sensitivity for detection of focal lesions and vascular pathology. Coronal and sagittal reformations were obtained. Routine protocol was performed. IV CONTRAST: None ORAL CONTRAST: None COMPLICATIONS: None RADIATION DOSE: Total DLP: ... 1026 mGy*cm Estimated effective dose: (DLP x 0.015 x size factor) mSv CTDIvol has been reviewed. It is below the limits set by the Radiation Protocol Committee (RPC). Dose modulation, iterative reconstruction, and/or weight based adjustment of the mA/kV was utilized to reduce the radiation dose to as low as reasonably achievable. FINDINGS: LINES and TUBES: Right IJ central venous catheter, tip in the superior cavoatrial junction. LUNGS AND AIRWAYS: Bibasilar scarring/atelectasis otherwise. Calcified right middle lobe benign granuloma. Airways are normal. PLEURA: The pleural spaces are clear. HEART AND MEDIASTINUM: The thyroid gland is normal. No suspicious mediastinal, hilar or axillary lymphadenopathy. The heart is normal in size. There is no pericardial effusion. Calcifications of the aorta and major branches including the coronary arteries. Calcified hilar nodes. Aortic valve calcifications. Left ventricular subendocardial fat deposition, present since at least 08/13/2017. HEPATOBILIARY: Nodular liver contour and enlarged left hepatic lobe. Widened intrahepatic fissures. No focal hepatic lesions. No biliary ductal dilation. GALLBLADDER: Multiple calcified gallstones. No wall thickening. SPLEEN: No splenomegaly. PANCREAS: No focal masses or ductal dilatation. ADRENALS: No adrenal nodules KIDNEYS/URETERS: Atrophic [place] kidneys. Transplant right pelvic has a few small benign-appearing exophytic cyst. GI TRACT: No abnormal distention, wall thickening, or evidence of bowel obstruction. Moderate colonic stool volume. Appendix is normal. PELVIC ORGANS/BLADDER: Unremarkable. LYMPH NODES: No lymphadenopathy. VESSELS: Arterial calcifications. Unremarkable. PERITONEUM / RETROPERITONEUM: No free air or fluid. BONES: Degenerative changes. Endplate vertebral sclerotic changes. SOFT TISSUES: Prosthetic right testicle. There is a fat containing para-umbilical hernia. IMPRE SSION: 1. Triple vessel coronary artery calcific atherosclerosis with evidence of chronic sequelae of left ventricular ischemia, present since at least 08/13/2017. 2. Renal osteodystrophy. 3. Cirrhotic hepatic morphology. 4. Moderate colonic stool volume. 5. Cholelithiasis. Signed by: Clemente Irene DO on 04/27/2020 6:29 AM Dictated By: CLEMENTE IRENE DO 8 Transcribed By: MALDONADO on 04/27/20628 COPY TO: DAYANNA RIZVI MD ABDOMEN COMPLETE 2020-04-26 11:06:00 [facility]: FADIA DOUGHERTY : 1960 Sex: M [place] [address] Patient Name: FADIA DOUGHERTY MR #: [id number] : 1960 Age/Sex: 59/M Req #: [id number] Adm Physician: DAYANNA RIZVI MD Ordered by: FLOWER PALMER MD Report #: [id number] Location: ICU Room/Bed: ICU [facility] Procedure: [id number] US/US ABDOMEN COMPLETE Exam Date: 04/26/20 Exam Time: 939 REPORT STATUS: Signed EXAM: Complete Abdominal Ultrasound INDICATION: Liver disease. Ascites. Abdominal pain [id number] LIVER DISEASE AND POSSIBLE ASCITES COMPARISON: CT scan August 13, 2017 TECHNIQUE: Transverse and longitudinal images of the upper abdomen were obtained. FINDINGS: Liver: Size: 14.7 cm in the right midclavicular line, normal Appearance: Increased echogenicity, smooth contour Mass: No focal masses Spleen: Size: 12.2 cm in length, normal Echogenicity: Normal Mass: No focal masses Gallbladder: Stones/Sludge: Multiple stones in the lumen of the gallbladder. Wall: 0.5 cm. Thickened Appearance: No pericholecystic fluid or hydrops. Sonographic Keating's Sign: Negative Bile Ducts: Intrahepatic Ducts: No dilatation Extrahepatic Ducts: Common bile duct is not well seen Pancreas: Not well seen Kidneys: Right not well seen Left not well seen Vessels: Aorta: Not well seen Inferior Vena Cava: Visualized portions are unremarkable Main Portal Vein: 1.2 cm, normal size with hepatopetal flow. Free Fluid: No ascites or pleural effusion IMPRESSION: Increased hepatic echogenicity could be due to fatty infiltration. Numerous gallstones in the lumen of the gallbladder with gallbladder wall thickening. The common bile duct is not well seen. Bilateral kidneys, pancreas and abdominal aorta are not well seen. CT scan may be of benefit if clinically indicated. Signed by: Dr. Rajiv Wong M.D. on 04/26/2020 11:11 AM Dictated By: RAJIV WONG MD, MD 1111 Transcribed By: MALDONADO on 04/26/20 1111 COPY TO: FLOWER PALMER MD CHEST SINGLE (PORTABLE) 2020-04-26 02:18:00 [facility] FADIA DOUGHERTY : 1960 Sex: M [facility] [address] [address] Patient Name: FADIA DOUGHERTY MR #: [id number] : 1960 Age/Sex: 59/M Req #: [id number] Adm Physician: DAYANNA RIZVI MD Ordered by: FLOWER PALMER MD Report #: [id number] Location: ICU Room/Bed: ICU [facility] Procedure: [id number] DX/CHEST SINGLE (PORTABLE) Exam Date: 04/26/20 Exam Time: 0200 REPORT STATUS: Signed EXAMINATION: CHEST SINGLE (PORTABLE) INDICATION: PNEUMO; s/p central line placement 20200426 COMPARISON: 04/25/2020 FINDINGS: AP view TUBES and LINES: Stable endotracheal tube. New enteric tube in place with tip extending beyond the inferior margin of film. New right internal jugular central line in place with tip projecting over mid to inferior SVC. LUNGS: Lungs are well inflated. Pulmonary vascular congestion and mild additional edema. PLEURA: No pneumothorax. Small left pleural effusion. HEART AND MEDIASTINUM: The cardiomediastinal silhouette is enlarged on this AP view. BONES AND SOFT TISSUES: No acute osseous lesion. Soft tissues are unremarkable. UPPER ABDOMEN: No free air under the diaphragm. IMPRESSION: New right internal jugular central line placement tip projecting over mid to inferior SVC. No pneumothorax. Pulmonary vascular congestion and mild interstitial edema. Small left pleural effusion. Underlying pneumonia cannot be excluded. Signed by: Dr. Nash Cooper MD on 04/26/2020 2:21 AM Dictated By: NASH COOPER MD 0 Transcribed By: MALDONADO on 220 COPY TO: FLOWER PALMER MD CT BRAIN WO 2020-04-25 13:50:00 [facility]: FADIA DOUGHERTY : 1960 Sex: M [place] [address] Patient Name: FADIA DOUGHERTY MR #: [id number] : 1960 Age/Sex: 59/M Req #: [id number] Adm Physician: Ordered by: DARLIN CASTRO DO Report #: [id number] Location: Room/Bed: Procedure: [id number] CT/CT BRAIN WO Exam Date: 04/25/20 Exam Time: 1259 REPORT STATUS: Signed EXAMINATION: Head CT HISTORY: 59-year-old female status post fall, alteration of consciousness COMPARISON: None. TECHNIQUE: Helical axial images of the head were obtained. Reformatted coronal and sagittal images from the axial data. Dose modulation, iterative reconstruction, and/or weight based adjustment of the mA/kV was utilized to reduce the radiation dose to as low as reasonably achievable. FINDINGS: Parenchyma: 1. A few scattered white matter hypodensities, most likely nonspecific chronic microvascular ischemic changes. 2. No mass or hemorrhage. No CT evidence of acute territorial vascular insult. Extra-axial spaces:No abnormal density. No extra-axial fluid collections Brain volume: Normal for age. Ventricles: No hydrocephalus or displacement. Arteries: No density suggestive of thrombus. Dural sinuses: No abnormal density. Foramen magnum: No mass, Chiari malformation, or basilar invagination. Sella: No obvious mass. Paranasal/mastoid sinuses: Imaged portions unremarkable. Skull/Scalp: No lytic or blastic lesions. No fractures. IMPRESSION: 1. No acute post traumatic intracranial hemorrhage. 2. Minimal chronic microvascular ischemic changes. Signed by: Dr. Jhony Lugo M.D. on 04/25/2020 1:54 PM Dictated By: JHONY LUGO MD 1351 Transcribed By: MALDONADO on 04/25/20 1353 COPY TO: DARLIN CASTRO, CHEST SINGLE (PORTABLE) 2020-04-25 13:45:00 [facility] 1960 Sex: M [facility] [address] [address] Patient Name: FADIA DOUGHERTY MR #: [id number] : 1960 Age/Sex: 59/M Req #: [id number] Adm Physician: Ordered by: DARLIN CASTRO DO Report #: [id number] Location: ER Room/Bed: Procedure: [id number] DX/CHEST SINGLE (PORTABLE) Exam Date: 04/25/20 Exam Time: 1259 REPORT STATUS: Signed EXAMINATION: CHEST SINGLE (PORTABLE) INDICATION: AMS COMPARISON: Chest radiograph 11-11-2018. FINDINGS: TUBES and LINES: Endotracheal tube terminates 4.3 cm above the leatha. Overlying EKG leads. LUNGS: Lungs are well inflated. Mild interstitial opacities. No evidence of lobar pneumonia. Calcified granuloma in the right lower lung. PLEURA: No pleural effusion or pneumothorax. HEART AND MEDIASTINUM: The cardiomediastinal silhouette is unremarkable. BONES AND SOFT TISSUES: No acute osseous lesion. Soft tissues are unremarkable. UPPER ABDOMEN: No free air under the diaphragm. IMPRESSION: Mild interstitial opacities may be age-related, represent mild interstitial edema, or infectious process. No evidence of lobar pneumonia. Signed by: Dr. Brando Mathews MD on 04/25/2020 1:47 PM Dictated By: BRANDO MATHEWS MD 1347 Transcribed By: MALDONADO on 04/25/20 1347 COPY TO: DARLIN CASTRO DO CHEST 2 VIEWS 2018-11-11 18:27:00 [place] [address] Patient Name: FADIA DOUGHERTY MR #: [id number] : 1960 Age/Sex: 58/M Req #: [id number] Adm Physician: Ordered by: MARY JONES MD Report #: [id number] Location: RAD Room/Bed: Procedure: [id number] DX/CHEST 2 VIEWS Exam Date: Exam Time: REPORT STATUS: Signed EXAMINATION: CHEST 2 VIEWS INDICATION: Not provided COMPARISON: 07/30/2014 FINDINGS: PA and lateral views TUBES and LINES: None. LUNGS: Lungs are well inflated. There is no evidence of pneumonia or pulmonary edema. Unchanged right lower lung field nodular density, likely a calcified granuloma. PLEURA: No pleural effusion or pneumothorax. HEART AND MEDIASTINUM: The cardiomediastinal silhouette is unremarkable. BONES AND SOFT TISSUES: No acute osseous lesion. Soft tissues are unremarkable. UPPER ABDOMEN: No free air under the diaphragm. IMPRESSION: No acute thoracic abnormality. The change from prior exam. Signed by: Dr. Nash Cooper MD on 11/11/2018 6:28 PM Dictated By: NASH COOPER MD 27 Transcribed By: MALDONADO on 11/11/181827 COPY TO: MARY JONES MD CT ABDOMEN/PELVIS [place] [address] Patient Name: FADIA DOUGHERTY MR #: [id number] : 1960 Age/Sex: 56/M Req #: [id number] Adm Physician: Ordered by: MARCEL DAVENPORT MD Report #: [id number] Location: CT Room/Bed: Procedure: [id number] CT/CT ABDOMEN/PELVIS W Exam Date: 08/13/17 Exam Time: 0958 REPORT STATUS: Signed CT scan abdomen and pelvis. 08/13/2017 Clinical history: Abdominal pain Technique: Routine protocol CT abdomen and pelvis performed after 100 mL Isovue-370 intravenous contrast. No enteric contrast was administered. Coronal, sagittal and axial images generated from source data. Dose: 583.39 mGy-cm Comparison: None Findings: Calcified right lower lobe granuloma. Left hemidiaphragm elevation. Mild cardiomegaly without pericardial effusion. Liver: Nodular margin with left lobe hypertrophy. Gallbladder: Multiple calcified stones measuring up to 2 cm in diameter. No bile duct dilation. Pancreas: Normal Spleen: Span 12 cm. Normal. Adrenal glands: Normal Kidneys: Totally atrophic left kidney with moderate hydroureter (for example, image 49, series 2). This extends to the level of the urinary bl adder. Right pelvic kidney. Urinary bladder: Normal Prostate and seminal vesicles: Normal Bowel: Small sliding-type hiatal hernia. Mild descending colon diverticulosis. Normal small bowel caliber. Peritoneum: Normal Vasculature: Normal caliber. Expected anomalous origins of the right pelvic kidney vessels. Mild scattered atherosclerosis, nonflow limiting. Questionable early umbilical vein recanalization (image 24, series 2). No conspicuous varices. Lymph nodes: Retroperitoneal nodes measuring up to 0.9 cm in diameter (image 38, series 2). Otherwise, normal Skeleton: Relative loss of normal lumbar lordosis. Otherwise, normal Soft tissues: 2.5 x 3 x 3 cm fat-containing umbilical hernia. Hernia ostium about 1.3 cm. Containing fat demonstrates mild regional inflammation with trace focal fluid collection. No bowel involvement. Impression: 1. Fat-containing umbilical hernia. Hernia fat demonstrates mild inflammatory changes. Recommend correlation for strangulation/reducibility. No bowel involvement. 2. Right pelvic kidney and atrophic left kidney. Though the left kidney is atrophic, there is hydroureter in the mid to distal segment, which may be secondary to chronic reflux. 3. Cholelithiasis. 4. Cirrhotic liver morphology. 5. Subcentimeter retroperitoneal nodes, likely reactive. 6. Small hiatal hernia. This report was generated with voice-recognition technology. Errors in grain thresher can occur. Please interpret accordingly and contact a radiologist if there are any questions regarding the report. Signed by: Dr. Judy Kendall M.D. on 08/13/2017 10:37 AM Dictated By: JUDY KENDALL MD 1037 Transcribed By: MALDONADO on 08/13/17 1037 COPY TO: MARCEL DAVENPORT MD US ABDOMEN COMPLETE [place] [address] Patient Name: FADIA DOUGHERTY MR #: [id number] : 1960 Age/Sex: 56/M Req #: [id number] Adm Physician: Ordered by: MARCEL DAVENPORT MD Report #: [id number] Location: US Room/Bed: Procedure: [id number] US/US ABDOMEN COMPLETE Exam Date: 07/18/17 Exam Time: 1339 REPORT STATUS: Signed PROCEDURE: ABDOMINAL ULTRASOUND COMPARISON: None. INDICATIONS: Ascites FINDINGS: Liver: 16.8 cm. Normal hepatic parenchymal echogenicity. No focal mass. Main portal vein: 1.3 cm. Hepatopedal flow. Gallbladder: Multiple echogenic gallstones are present. The gallbladder is distended, measuring 9.5 cm in greatest length. No gallbladder wall thickening or pericholecystic fluid. Common Bile Duct: 5.0 mm. No echogenic filling defect. Sonographic Keating's sign: Negative. Right kidney: Not visualized. Left kidney: Not visualized. Spleen: 11.2 cm. No focal mass. The pancreas, inferior vena cava, and aorta were insufficiently visualized for comment secondary to overlying bowel gas and increased body habitus. Ascites: None. CONCLUSION: Cholelithiasis. No sonographic evidence of acute cholecystitis. Probable gallbladder hydrops. Dictated by: Dayanna Milian M.D. on 07/18/2017 at 14:55 Electronically approved by: Dayanna Milian M.D. on 07/18/2017 at 14:55 Dictated By: DAYANNA MILIAN MD [id number] Transcribed By: JACQUIE on 07/18/17 1658 COPY TO: MARCEL DAVENPORT MD
--- OUTSIDE RECORDS SUMMARY | 2020-05-13 17:12 | XMS REPORT | Clinical Summary ---
Author Author [employer] Address Unknown Phone Unavailable Care Team Providers Care Valuer Name Role Phone Julieta Mata MD, Misbah PCP Allergies No Known Active Allergies Medications End Date Status Medication Sig Dispensed Refills Start Date Active SENSIPAR 30 mg tablet 0 7 Active RENVELA 800 mg tablet 0 7 Active ANORO ELLIPTA 62.5-25 INL 1 PUFF PO 11 08/25/19 1 mcg/actuation blister D 7 with device Active gabapentin (NEURONTIN) TK 2 CS PO HS 3 01 100 mg capsule 7 Active NIFEdipine XL (PROCARDIA Take 60 mg by 0 XL) 60 MG 24 hr tablet mouth daily. 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 Volume flow 759 ml/min, some stenosis. Plan extensive revision of L AVF with T DC placement We discussed operative complications in cluding bleeding, thrombosis, failure of the access, swelling, steal syndrome, and need for additional procedures. Tobacco use 10/16/2016 Surgical History Surgery Date Site/Laterality Comments DIALYSIS FISTULA CREATION HERNIA REPAIR Bilateral inguinal hernia - 1 4 years; 20 years old VASCULAR SURGERY TDC- 5 YEARS AGO REVISION, ARTERIOVENOUS 11/15/2016 Arm Upper/Left Proced ure: 1. Left arm fistulogram 2. Extensive GRAFT, WITH ANGIOGRAPHY revision of left arm radio cephalic fistula 3. Insertion of Right IJ TDC; Surgeon: Jaime Anderson MD; Location: [facility] OR; Service: Vas cular; Laterality: Left; Medical devices from this surgery are i n the Implants section. Medical History Medical History Date Comments Hypertension Chronic kidney disease Asthma Insomnia Oliguria Blurry vision, bilateral Wears glasses Infectious viral hepatitis hepatitis c Wears dentures top Family History Medical History Relation Name Comments Hypertension Father Relation Name Status Comments Father Alive Mother Social History Date Tobacco Use Types Packs/Day Years Used Current Every Day Smoker Cigarettes Tobacco Cessation: Ready to Quit: No Comments: 4-5 cig/day Drinks/Week oz/Week Comments Alcohol Use No Sex Assigned at Date Recorded Not on file Last Filed Vital Signs Not on file Plan of Treatment Health Maintenance Due Date Last Done Comments COLONOSCOPY SCREENING 2010 SHINGLES VACCINES (#1) 2010 INFLUENZA VACCINE 02/07/2020 Implants Device Identifier Shelf Expiration Date Model / Serial / L ot Implanted Type Area Manufactur er 05/08/2018 [id number] / / [id number] Catheter Dialysis Glidepath Implantabl Right: Chest BA RD [id number] Symmetric Tip - e Infusion PERIPHERAL [id number] Ports or VASCULAR Implanted: Qty: 1 on 11/15/2016 by Mikel Suárez MD at [facility] [id number] / / Clip Ligtng Weck Hemoclip Plus W/ Medical N/A: N/A WECK Tape Ti Sm - [id number] Clips for CLOSURE Implanted: 11/15/2016 at [facility] (Quantity not on file) Use [id number] / / Clip Ligtng Weck Hemoclip Plus W/ Medical N/A: N/A TELEFLEX Tape Ti Med - [id number] Clips for MEDICAL Implanted: 11/15/2016 at [facility] (Quantity not on file) Use Results Not on fileafter 05/04/2019 Insurance Type Payer Benefit Subscriber ID Effective Phone Address Plan / Dates Group [facility] [employer] [id number] 2013-[id number] TANA cardona Advance Directives For more information, please contact: [phone] Patient Nutritional Services Host Explanation Type Date Recorded Advance Directives, 11/15/2016 8:08 AM Living Will and Medical Power of Service Crew Leader
--- OUTSIDE RECORDS SUMMARY | 2020-05-13 17:13 | XMS REPORT | Continuity of Care Document ---
Author Author [facility] Organization [facility] Address [address] [place] [address] Phone Unavailable Care Team Providers Care Transit Department Clerk Name Role Phone Julieta Mata MD, Marcel [...] C Hepatitis C Disease Active 2016-10-16 00:00:00 [facility] Essential hypertension Essential hypertension Disease Active [...] Known Allergies DA Active U 2018-04-15 00:00:00 [facility] No Known Allergies DA Active U 2015-10-06 00:00:00 [facility] Family History Family Member Diagnosis Comments Start [...] VACCINES (#1) [code = SHINGLES VACCINES (#1)] [facility] Results Test Description Test Time Test Comments Results Result Comments Source CT CERVICAL SPINE WO 2020-05-04 14:05:00 [facility] : 1960 Sex: M [facility] [address] [place] [address] Patient Name: FADIA DOUGHERTY MR #: [id number] : 1960 Age/Sex: 59/M Req #: [id number] Adm Physician: Ordered by: GILLIAN JONES MD Report #: [id number] Location: ER Room/Bed: Procedure: [id number] CT/CT CERVICAL SPINE WO Exam Date: 05/04/20 [...] MD CT BRAIN WO 2020-05-04 13:57:00 [facility] : 1960 Sex: M [place] [address] Patient Name: FADIA DOUGHERTY MR #: [id number] : 1960 Age/Sex: 59/M Req #: [id number] [facility] Physician: Ordered by: GILLIAN JONES MD Report #: [id number] Location: Room/Bed: Procedure: [id number] CT/CT BRAIN WO Exam Date: 05/04/20 Exam [...] MD CHEST SINGLE (PORTABLE) 2020-05-04 13:26:00 [facility] 1960 Sex[facility] M [facility] [address] [place] [address] Patient Name: FADIA DOUGHERTY MR #: [id number] : 1960 Age/Sex: 59/M Req #: [id number] Adm Physician: Ordered by: GILLIAN JONES MD Report #: [id number] Location: ER Room/Bed: Procedure: [id number] DX/CHEST SINGLE (PORTABLE) Exam Date: 05/04/20 Exam [...] PELVIS AP 1-2 VIEWS 2020-05-04 13:22:00 [facility] : 1960 Sex: M [place] [address] Patient Name: FADIA DOUGHERTY MR #: [id number] : 1960 Age/Sex: 59/M Req #: [id number] Adm Physician: Ordered by: GILLIAN JONES MD Report #: [id number] Location: ER Room/Bed: Procedure: [id number] DX/PELVIS AP 1-2 VIEWS Exam Date: 05/04/20 Exam Time: 1255 REPORT STATUS: Signed EXAMINATION: PELVIS AP 1-2 VIEWS INDICATION: Fall COMPARISON: CT abdomen/pelvis of 04/26/2020 FINDINGS: No acute fracture or dislocation. Mild left hip degenerative changes. IMPRESSION: No acute osseous injury. Signed by: Alicia Chatman MD on 05/04/2020 1:25 PM Dictated By: AILCIA CHATMAN MD Transcribed By: MALDONADO on 05/04/200 COPY TO: GILLIAN JONES MD CHEST SINGLE (PORTABLE) 2020-04-27 08:13:00 [facility] : 1960 Sex: M [place] [address] Patient Name: FADIA DOUGHERTY MR #: [id number] : 1960 Age/Sex: 59/M Req #: [id number] [facility] Physician: DAYANNA RIZVI MD Ordered by: FLOWER PALMER MD Report #: [id number] Location: ICU Room/Bed: ICU [facility] Procedure: [id number] DX/CHEST SINGLE (PORTABLE) Exam Date: 04/27/20 Exam [...] MD CT ABDOMEN/PELVIS WO 2020-04-27 06:18:00 [facility] 1960 Sex: M [place] [address] Patient Name: FADIA DOUGHERTY MR #: [id number] : 1960 Age/Sex: 59/M Req #: [id number] Adm Physician: DAYANNA RIZVI MD Ordered by: DAYANNA RIZVI MD Report #: [id number] Location: ICU Room/Bed: ICU 190 Procedure: [id number] CT/CT ABDOMEN/PELVIS WO Exam Date: 04/26/20 Exam [...] dilatation. ADRENALS: No adrenal nodules KIDNEYS/URETERS: Atrophic [place] kidneys. Transplant right pelvic has a few [...] MD CT CHEST WO 2020-04-27 06:18:00 [facility] : 1960 Sex: M [place] [address] Patient Name: FADIA DOUGHERTY MR #: [id number] : 1960 Age/Sex: 59/M Req #: [id number] Adm Physician: DAYANNA RIZVI MD Ordered by: DAYANNA RIZVI MD Report #: [id number] Location: ICU Room/Bed: ICU [facility] Procedure: [id number] CT/CT CHEST WO Exam Date: 04/26/20 Exam [...] dilatation. ADRENALS: No adrenal nodules KIDNEYS/URETERS: Atrophic [place] kidneys. Transplant right pelvic has a few [...] RIZVI MD ABDOMEN COMPLETE 2020-04-26 11:06:00 [facility] : 1960 Sex: M [place] [address] Patient Name: FADIA DOUGHERTY MR #: [id number] : 1960 Age/Sex: 59/M Req #: [id number] Adm Physician: DAYANNA RIZVI MD Ordered by: FLOWER PALMER MD Report #: [id number] Location: ICU Room/Bed: ICU [facility] Procedure: [id number] US/US ABDOMEN COMPLETE Exam Date: 04/26/20 Exam [...] PALMER MD CHEST SINGLE (PORTABLE) 2020-04-26 02:18:00 [facility] : 1960 Sex: M [facility] [address] [place] [address] Patient Name: FADIA DOUGHERTY MR #: [id number] : 1960 Age/Sex: 59/M Req #: [id number] Adm Physician: DAYANNA RIZVI MD Ordered by: FLOWER PALMER MD Report #: [id number] Location: ICU Room/Bed: ICU [facility] Procedure: [id number] DX/CHEST SINGLE (PORTABLE) Exam Date: 04/26/20 Exam [...] MD CT BRAIN WO 2020-04-25 13:50:00 [facility] : 1960 Sex: M [place] [address] Patient Name: FADIA DOUGHERTY MR #: [id number] : 1960 Age/Sex: 59/M Req #: [id number] Adm Physician: Ordered by: DARLIN CASTRO DO Report #: [id number] Location: Room/Bed: Procedure: [id number] CT/CT BRAIN WO Exam Date: 04/25/20 Exam [...] 1:54 PM Dictated By: JHONY LUGO MD 1350 Transcribed By: MALDONADO on 04/25/20 135 COPY TO: DARLIN CASTRO, CHEST SINGLE (PORTABLE) 2020-04-25 13:45:00 [facility] : 1960 Sex: M [facility] [address] [place] [address] Patient Name: FADIA DOUGHERTY MR #: [id number] : 1960 Age/Sex: 59/M Req #: [id number] Adm Physician: Ordered by: DARLIN CASTRO DO Report #: [id number] Location: ER Room/Bed: Procedure: [id number] DX/CHEST SINGLE (PORTABLE) Exam Date: 04/25/20 Exam [...] CASTRO DO CHEST 2 VIEWS 2018-11-11 18:27:00 [place] [address] Patient Name: FADIA DOUGHERTY MR #: [id number] : 1960 Age/Sex: 58/M Req #: [id number] Adm Physician: Ordered by: MARY JONES MD Report #: [id number] Location: RAD Room/Bed: Procedure: [id number] DX/CHEST 2 VIEWS Exam Date: Exam Time: [...] COPY TO: MARY JONES MD CT ABDOMEN/PELVIS [place] [address] Patient Name: FADIA DOUGHERTY MR #: [id number] : 1960 Age/Sex: 56/M Req #: [id number] Adm Physician: Ordered by: MARCEL DAVENPORT MD Report #: [id number] Location: CT Room/Bed: Procedure: [id number] CT/CT ABDOMEN/PELVIS W Exam Date: 08/13/17 Exam [...] was generated with voice-recognition technology. Errors in aerospace medicine physician can occur. Please interpret accordingly and contact a radiologist if there are any questions regarding the report. Signed by: Dr. Judy Kendall M.D. on 08/13/2017 10:37 AM Dictated By: JUDY KENDALL MD 1037 Transcribed By: MALDONADO on 08/13/17 1037 COPY TO: MARCEL DAVENPORT MD US ABDOMEN COMPLETE [place] [address] Patient Name: FADIA DOUGHERTY MR #: [id number] : 1960 Age/Sex: 56/M Req #: [id number] Adm Physician: Ordered by: MARCEL DAVENPORT MD Report #: [id number] Location: US Room/Bed: Procedure: [id number] US/US ABDOMEN COMPLETE Exam Date: 07/18/17 Exam [...] at 14:55 Dictated By: DAYANNA MILIAN MD 2081 Transcribed By: JACQUIE on 07/18/17 0784 COPY TO: MARCEL DAVENPORT MD
== END 2020-05-06 11:14 | disposition home or self-care (01) | DRG 917 ==
LOC: ER 13:19 → ERHOLD 14:25 → ICU 14:26 → MED/SURG3 05-05 18:13
PROVIDERS: ADMIT Internal Medicine; ATTEND Internal Medicine
PROC: 5A1D70Z Performance of Urinary Filtration, Intermittent, Less than 6 Hours Per Day (ICD-10-PCS; principal; 2020-05-04)
PROC: 5A1D70Z Performance of Urinary Filtration, Intermittent, Less than 6 Hours Per Day (ICD-10-PCS; 2020-05-05)
DX: T42.4X1A Poisoning by benzodiazepines, accidental (unintentional), initial encounter (principal); G93.41 Metabolic encephalopathy; J96.00 Acute respiratory failure, unspecified whether with hypoxia or hypercapnia; N18.6 End stage renal disease; Q60.0 Renal agenesis, unilateral; N25.81 Secondary hyperparathyroidism of renal origin; Z91.81 History of falling; J44.9 Chronic obstructive pulmonary disease, unspecified; Z99.2 Dependence on renal dialysis; D64.9 Anemia, unspecified; E87.5 Hyperkalemia; F41.9 Anxiety disorder, unspecified; F32.9 Major depressive disorder, single episode, unspecified; Z72.0 Tobacco use; Z11.59 Encounter for screening for other viral diseases
CPT/HCPCS: 36415; 36600; 70450; 71045; 72125; 72170; 80053; 80307; 80320; 81001; 82140; 82550; 82553; 82805; 83880; 84484; 85025; 85610; 85730; 86705; 86706; 87040; 87086; 87340; 90962; 93005; 99284; J0456; J0696; J3370; J7030; J7050; J7799

== ENCOUNTER 2020-08-19 03:19 | Observation (INO) | payer MEDICARE ==
[2020-08-18 13:30] VITALS: BP 191/99
[~2020-08-19] VITALS: Ht 165.1 cm; Wt 84.4 kg
[2020-08-19] MEDS ORDERED: HYDRALAZINE HCL 20 MG/ML VIAL IV STA (04:00)
[2020-08-19] MEDS ORDERED: ALBUTEROL/IPRATROPIUM 3 ML NEB NEB ONE (04:00)
[2020-08-19] MEDS ORDERED: METHYLPREDNISOLONE SOD SUCC 125 MG/2ML VIAL IV ONE (04:00)
[2020-08-19 04:15] LABS: BASOPHILS % 0.3 % (0.0-1.0); EOSINOPHILS % 0.2 % (0.0-6.0); HEMATOCRIT 32.6 % (38.2-49.6); HEMOGLOBIN 10.3 g/dL (14.0-18.0); LYMPHOCYTES # (AUTO) 2.3 (1.0-3.2); LYMPHOCYTES % 19.5 % (18.0-39.1); MEAN CORPUSCULAR HEMOGLOBIN 29.1 pg (28-32); MEAN CORPUSCULAR HGB CONC 31.6 g/dL (31-35); MEAN CORPUSCULAR VOLUME 92.1 fL (81-99); MONOCYTES # (AUTO) 1.3 (0.2-0.8); NEUTROPHILS # (AUTO) 8.1 (2.1-6.9); NEUTROPHILS % 68.6 % (38.7-80.0); PLATELET COUNT 234 x10e3/uL (140-360); RED BLOOD COUNT 3.54 x10e6/uL (4.3-5.7); RED CELL DISTRIBUTION WIDTH 13.8 % (11.7-14.4)
[2020-08-19 04:35] LABS: ALBUMIN 3.5 g/dL (3.5-5.0); ALBUMIN/GLOBULIN RATIO 0.7 (0.8-2.0); ANION GAP 21.7 mmol/L (8-16); CALCIUM 8.8 mg/dL (8.4-10.2); CREATININE, SERUM 8.17 mg/dL (0.72-1.25); POTASSIUM 4.7 mmol/L (3.5-5.1)
[2020-08-19 04:41] LABS: CREATINE KINASE MB 4.4 ng/mL (0-5.0)
[2020-08-19] MEDS ORDERED: FUROSEMIDE INJ 10 MG/ML 4 ML VIAL IV ONE (05:00)
[2020-08-19] MEDS ORDERED: SODIUM CHLORIDE FLUSH 10 ML SYR INJ PRN (05:00)
[2020-08-19] MEDS ORDERED: HYDRALAZINE HCL 20 MG/ML VIAL IV PRN (05:00)
[2020-08-19] MEDS ORDERED: ONDANSETRON HCL INJ 2MG/ML 2ML 2 MG/ML VIAL IV PRN (05:00)
[2020-08-19] MEDS: ALBUTEROL/IPRATROPIUM 3 ML NEB NEB SCH ×2 (08:05→11:00)
[2020-08-19] MEDS ORDERED: HYDROXYZIN10 MG/5 ML PO (08:11)
[2020-08-19] MEDS ORDERED: PREDNISONE20 MG PO (08:11)
[2020-08-19] MEDS ORDERED: RENAGEL800 MG PO (08:15)
[2020-08-19] MEDS ORDERED: HYDRALAZINE HCL25 MG PO (08:15)
[2020-08-19] MEDS ORDERED: ALBUTEROL SULFATE HFA 8GM INHALATION AEROSOL INH PRN (08:30)
[2020-08-19 08:35] VITALS: BP 191/99
[2020-08-19] MEDS ORDERED: FUROSEMIDE 40 MG TAB PO SCH (09:00)
[2020-08-19] MEDS ORDERED: SEVELAMER CARBONATE 800 MG TAB PO SCH (09:00)
[2020-08-19] MEDS ORDERED: METOPROLOL TARTRATE 25 MG TAB PO SCH (09:00)
[2020-08-19] MEDS ORDERED: SENNOSIDES 8.6 MG TAB PO SCH (09:00)
[2020-08-19] MEDS ORDERED: CALCIUM ACETATE 667 MG GELCAP PO SCH (09:00)
[2020-08-19] MEDS ORDERED: CINACALCET 30 MG TAB PO SCH (09:00)
[2020-08-19] MEDS ORDERED: PREDNISONE 20 MG TAB PO SCH (09:00)
[2020-08-19] MEDS ORDERED: DOXYCYCLINE HYCLATE TABLET 100 MG TAB PO SCH (09:00)
[2020-08-19 09:23] VITALS: BP 191/99
[2020-08-19] MEDS ORDERED: NIFEDIPINE CR 30 MG TAB PO ONE (10:00)
[2020-08-19] MEDS ORDERED: ALPRAZOLAM 0.25 MG TAB PO ONE (11:15)
[2020-08-19] MEDS ORDERED: SODIUM CHLORIDE 0.9% 1000ML 2,000 ML IV PRN (11:45)
[2020-08-19 11:58] LABS: CREATINE KINASE MB 3.8 ng/mL (0-5.0)
[2020-08-19] MEDS ORDERED: BENZONATATE 100 MG CAP PO SCH (12:00)
[2020-08-19 12:38] VITALS: BP 182/102
[2020-08-19] MEDS ORDERED: ONDANSETRON HCL 4 MG ORAL DISINTEGRATING TAB PO PRN (13:15)
[2020-08-19] MEDS ORDERED: HYDRALAZINE HCL 25 MG TAB PO SCH (14:00)
[2020-08-20] MEDS ORDERED: NIFEDIPINE CR 30 MG TAB PO SCH (09:00)
== END 2020-08-19 14:51 | disposition home or self-care (01) ==
LOC: ER 04:20 → INTOOBSV 04:54 → ERHOLD 04:54 → MED/SURG3 07:45
PROVIDERS: ADMIT Internal Medicine; ATTEND Internal Medicine
DX: E87.70 Fluid overload, unspecified (principal); J44.9 Chronic obstructive pulmonary disease, unspecified; I12.0 Hypertensive chronic kidney disease with stage 5 chronic kidney disease or end stage renal disease; N18.6 End stage renal disease; Z99.2 Dependence on renal dialysis; Q60.0 Renal agenesis, unilateral; I16.0 Hypertensive urgency; Z82.49 Family history of ischemic heart disease and other diseases of the circulatory system; Z91.15 Patient's noncompliance with renal dialysis; N25.81 Secondary hyperparathyroidism of renal origin; D63.1 Anemia in chronic kidney disease; Z20.822 Contact with and (suspected) exposure to COVID-19
CPT/HCPCS: 36415; 71045; 80053; 82550; 82553; 83880; 84484; 85025; 87340; 90935; 93005; 94640 ×2; 99284; G0378; J0360; J1940; J2930; J7512; U0002